=== PATIENT | female | born 1990 | race Caucasian/White ===

== ENCOUNTER 2018-11-21 12:43 | Emergency (ER) | payer MEDICAID, OTHER ==
[2018-11-21 12:48] VITALS: RESP 18
[2018-11-21] MEDS ORDERED: KETOROLAC 60 MG/2 ML VIAL IM STA (13:29)
[2018-11-21] MEDS ORDERED: methylPREDNISolone SOD SUCCI 125 MG/2 ML VIAL IM ONE (13:29)
--- NOTE | 2018-11-21 14:02 | XR ---
EXAMINATION TYPE: XR cervical spine limited DATE OF EXAM: 11/21/2018 TECHNIQUE: Frontal, lateral, and open mouth view of the cervical spine are obtained. HISTORY: Pain numbness in left arm for 2 weeks. COMPARISON: None FINDINGS: The cervical spine is visualized in its entirety from C1 thru the top of T1 level, it is s traightening in alignment without evidence of acute fracture or dislocation. The pre-vertebral soft tissue appears within normal limits. The C1-C2 articulation is within normal limits on the open mout h view. Vertebral body heights and disc space heights are maintained. Overlying soft tissue is unrema rkable. IMPRESSION: As above.
--- NOTE | 2018-11-21 14:47 | ED ---
General Adult HPI - General Chief complaint: Extremity Injury, Upper Stated complaint: LT arm numbness Time Seen by Provider: 11/21/18 12:49 Source: patient, RN notes reviewed, old records reviewed Mode of arrival: ambulatory Limitations: no limitations - History of Present Illness Initial comments: Patient is a 20-year-old female who presents emergency department today for evaluation of neck pain and spasm. She complains of numbness and tingling down her first through third fingers. Patient states that she's been having these symptoms to them symptoms for many weeks. Patient states that just is frustrating continues to persist her pressure and states she has history of neck. Patient states she hasn't taken any Motrin or Tylenol for pain. She complains of tenderness over the trapezius. - Related Data Home Medications Medication Instructions Recorded Confirmed Albuterol Sulfate [Proair Hfa] 2 puff INHALATION RT-Q6H PRN 03/08/16 03/08/16 Cetirizine HCl [Zyrtec] 10 mg PO DAILY 03/08/16 03/08/16 Fluticasone Nasal [place] [Flonase 1 spray EA NOSTRIL DAILY PRN 03/08/16 03/08/16 Nasal [place]] Ketorolac [Toradol] 20 mg PO DAILY PRN 03/08/16 03/08/16 Levothyroxine Sodium [Synthroid] 88 mcg PO DAILY 03/08/16 03/08/16 SUMAtriptan SUCCINATE [Imitrex] 50 mg PO DAILY PRN 03/08/16 03/08/16 Topiramate [Topamax] 25 mg PO DAILY 03/08/16 03/08/16 Previous Rx's Medication Instructions Recorded Cyclobenzaprine [Flexeril] 10 mg PO TID #20 tab 11/21/18 Dexamethasone 0.75 mg PO DAILY #12 tab 11/21/18 Ibuprofen 600 mg PO TID #20 tablet 11/21/18 Allergies Allergy/AdvReac Type Severity Reaction Status Date / Time No Known Allergies Allergy Verified 03/08/16 07:49 Review of Systems ROS Statement: Those systems with pertinent positive or pertinent negative responses have been documented in the HPI. ROS Other: All systems not noted in ROS Statement are negative. Past Medical History Additional Past Medical History / Comment(s): MIGRAINES History of Any Multi-Drug Resistant Organisms: None Reported Past Surgical History: Ear Surgery Past Psychological History: No Psychological Hx Reported Smoking Status: Never smoker Past Alcohol Use History: Occasional Past Drug Use History: None Reported General Exam - General Exam Comments Initial Comments: 30-year-old female. Alert and oriented 3. No significant distress. Limitations: no limitations General appearance: alert, in no apparent distress Head exam: Present: atraumatic, normocephalic, normal inspection Eye exam: Present: normal appearance, PERRL, EOMI. Absent: scleral icterus, conjunctival injection, periorbital swelling ENT exam: Present: normal exam, mucous membranes moist Neck exam: Present: normal inspection, other (Patient has tenderness over the left-sided paraspinal muscles.). Absent: tenderness, meningismus, lymphadenopathy Respiratory exam: Present: normal lung sounds bilaterally. Absent: respiratory distress, wheezes, rales, rhonchi, stridor Cardiovascular Exam: Present: regular rate, normal rhythm, normal heart sounds. Absent: systolic murmur, diastolic murmur, rubs, gallop, clicks GI/Abdominal exam: Present: soft, normal bowel sounds. Absent: distended, tenderness, guarding, rebound, rigid Extremities exam: Present: normal inspection, full ROM, normal capillary refill. Absent: tenderness, pedal edema, joint swelling, calf tenderness Back exam: Present: normal inspection Neurological exam: Present: alert, oriented X3, CN II-XII intact Psychiatric exam: Present: normal affect, normal mood Skin exam: Present: warm, dry, intact, normal color. Absent: rash Course Vital Signs 11/21/18 12:45 Temperature 97.9 F Pulse Rate 76 Respiratory 18 Rate Blood Pressure 139/80 O2 Sat by Pulse 97 Oximetry Medical Decision Making - Medical Decision Making Patient is a 20-year-old female presents emergency room today with neck pain muscle spasms over the first through third fingers. She is him a Refill and sensation. She states that she has full range of motion of her neck and shoulders. She does have some tenderness over the trapezius. Patient was given IM Toradol Solu-Medrol. Patient's neck x-ray shows evidence of straightening of the cervical spine. Patient advised is no fracture. Discussed that she needs to muscle accident temperature medicine for pain. Discussed falling up with service desk specialist. All questions were answered. Disposition Clinical Impression: Cervical paraspinal muscle spasm, Paresthesia Disposition: HOME SELF-CARE Condition: Good Instructions (If sedation given, give patient instructions): Muscle Spasm (ED), Paresthesia (ED) Additional Instructions: Patient has have close follow-up with primary care physician. Return to the emergency department if any alarming signs or symptoms occur. Patient has taken steroids multiple anti-inflammatory medicine as prescribed. Recommended doing heat and ice to the neck for spasms. Prescriptions: Dexamethasone 0.75 mg PO DAILY #12 tab Cyclobenzaprine [Flexeril] 10 mg PO TID #20 tab Ibuprofen 600 mg PO TID #20 tablet Is patient prescribed a controlled substance at d/c from ED?: No Referrals: None,Stated [Primary Care Provider] - 1-2 days Etta Simmons MD [STAFF PHYSICIAN] - 1-2 days Paul Melara MD [STAFF PHYSICIAN] - 1-2 days Time of Disposition: 14:43
[2018-11-21] MEDS ORDERED: CYCLOBENZAPRINE 10MG STARTER 3 TAB BTL PO STA (14:51)
[2018-11-21 15:21] VITALS: BP 123/70; PULSE 75; TEMP 98
== END 2018-11-21 15:20 | disposition home or self-care (01) ==
LOC: EC 12:43
DX: M62.838 Other muscle spasm (principal); R20.2 Paresthesia of skin; Z79.82 Long term (current) use of aspirin; Z79.890 Hormone replacement therapy; Z79.899 Other long term (current) drug therapy; Z86.69 Personal history of other diseases of the nervous system and sense organs
CPT/HCPCS: 99284; 96372; 72040; J2930; J1885

== ENCOUNTER → 2018-12-06 | Outpatient (CLI) | payer MEDICAID ==
--- NOTE | 2018-12-06 08:17 | US ---
EXAMINATION TYPE: US thyroid st tissue head/neck DATE OF EXAM: 12/06/2018 COMPARISON: Thyroid ultrasound of 2012 CLINICAL HISTORY: E04.9 ENLARGED THYROID. No thyroid meds. Patient states thyroid feels enlarged. GLAND SIZE: Right Lobe: 4.9 x 2.0 x 1.4 cm Overall Parenchyma: homogenous Left Lobe: 4.6 x 1.9 x 1.2 cm Overall Parenchyma: homogeneous Isthmus Thickness: 0.2 cm NODULES RIGHT: # of nodules measured on right: 1 1. 0.9 X 0.7 x 0.8 cm echogenic nodule with shadow at the mid lateral pole with irregular margins. This nodule is taller than wide and shows no intranodular vascularity. Prior size: 1.1 x 0.5 x 0.8 LEFT: # of nodules measured on left: 0 ISTHMUS: # of nodules measured in the isthmus: 0 Bilateral neck scanned, no evidence of lymphadenopathy. IMPRESSION: Stable right thyroid nodule dating back to thousand 12, this should be considered benign.
== END | disposition home or self-care (01) ==
LOC: RADUSWWP 07:39
PROVIDERS: ATTEND Family Medicine
DX: E04.1 Nontoxic single thyroid nodule (principal)
CPT/HCPCS: 76536

== ENCOUNTER → 2019-01-21 | Outpatient (CLI) | payer MEDICAID | END | disposition home or self-care (01) | LOC: LABWHC1 10:55 | PROVIDERS: ATTEND Otolaryngology | DX: R53.83 Other fatigue (principal); E04.1 Nontoxic single thyroid nodule | CPT/HCPCS: 36415; 82330; 86376 ==

== ENCOUNTER 2019-01-28 12:53 | Day surgery (SDC) | payer MEDICAID ==
[2019-01-28 13:57] VITALS: TEMP 98.1
[2019-01-28 14:07] VITALS: BP 127/69; PULSE 72; RESP 16
--- NOTE | 2019-01-28 14:18 | US ---
ULTRASOUND GUIDED FNA THYROID BIOPSY: CLINICAL HISTORY: 1 cm right thyroid nodule FINDINGS: The procedure was explained to the patient. The risks, complications, benefits and alternatives were discussed and any questions were answered. Informed consent was obtained. Patient was placed supin e on the ultrasound table and prepped and draped in the usual sterile fashion. Utilizing a 25 gauge needle, five passes were made into the requested 1 cm partially calcified right thyroid nodule. Patient was stable throughout the procedure. Pathology is pending. All elements of maximal barrier technique were utilized. IMPRESSION: 1. Successful ultrasound guided FNA thyroid biopsy.
== END 2019-01-28 14:10 | disposition home or self-care (01) ==
LOC: RADPROMAIN 12:53
PROVIDERS: ATTEND Otolaryngology
DX: E04.1 Nontoxic single thyroid nodule (principal)
CPT/HCPCS: 10005; 88173; 88305

== ENCOUNTER → 2019-06-03 | Outpatient (CLI) | payer MEDICAID | END | disposition home or self-care (01) | LOC: LABWHC1 06:56 | PROVIDERS: ATTEND Internal Medicine | DX: E89.0 Postprocedural hypothyroidism (principal); C73 Malignant neoplasm of thyroid gland | CPT/HCPCS: 36415; 84432; 84439; 84443; 86800 ==

== ENCOUNTER 2019-06-11 01:21 | Emergency (ER) | payer MEDICAID ==
[2019-06-11] MEDS ORDERED: KETOROLAC 30 MG/ML 1 ML VIAL IM STA (01:47)
[2019-06-11] MEDS ORDERED: ACETAMINOPHEN TAB 500 MG TAB PO STA (01:48)
[2019-06-11] MEDS ORDERED: ONDANSETRON ODT 4 MG TAB PO STA (01:48)
--- NOTE | 2019-06-11 01:56 | ED ---
General Adult HPI - General Chief complaint: Fever Stated complaint: Fever Time Seen by Provider: 06/11/19 01:38 Source: patient Mode of arrival: ambulatory Limitations: no limitations - History of Present Illness Initial comments: 28-year-old female patient presents the emergency department today for evaluation of fever, vomiting, and back pain. Patient states symptoms started early this morning. Last episode of vomiting was around noon. States she had about 4 episodes. Patient states that she is also having bilateral low back pain. Denies any abdominal pain. She denies any hematuria, dysuria, urinary frequency, urinary urgency. Patient states that she did have a sore throat and slight cough last week but those symptoms seem to have resolved. She denies any rash. States after count of 202.4F today. States she did take TheraFlu around midnight. Patient is also reporting headache and body aches. Patient does have history of thyroid cancer. Thyroid was removed in April, she reports no palpitations with this procedure. Patient denies any recent shortness breath, chest pain, numbness, tingling, dizziness, weakness, headache, visual changes, or any other complaints. - Related Data Home Medications Medication Instructions Recorded Confirmed Albuterol Sulfate [Proair Hfa] 2 puff INHALATION RT-Q6H PRN 03/08/16 01/21/19 Cetirizine HCl [Zyrtec] 10 mg PO DAILY 01/21/19 01/28/19 Ibuprofen 600 mg PO DAILY PRN 01/21/19 01/21/19 Allergies Allergy/AdvReac Type Severity Reaction Status Date / Time No Known Allergies Allergy Verified 06/11/19 01:30 Review of Systems ROS Statement: Those systems with pertinent positive or pertinent negative responses have been documented in the HPI. ROS Other: All systems not noted in ROS Statement are negative. Past Medical History Past Medical History: Thyroid Disorder Additional Past Medical History / Comment(s): MIGRAINES, thyroid Cancer 02/2019, History of Any Multi-Drug Resistant Organisms: None Reported Past Surgical History: Section, Ear Surgery Additional Past Surgical History / Comment(s): thyroid removal, Past Psychological History: No Psychological Hx Reported Smoking Status: Never smoker Past Alcohol Use History: Occasional Past Drug Use History: None Reported General Exam Limitations: no limitations General appearance: alert, in no apparent distress, other (This is a well- developed, well-nourished adult female patient in no acute distress. Vital signs upon presentation are temperature 99.0F. Pulse 101, respirations 18, blood pressure 155/79, pulse ox 98% on room air.) Eye exam: Present: normal appearance, PERRL, EOMI. Absent: scleral icterus, conjunctival injection, periorbital swelling ENT exam: Present: normal exam, normal oropharynx, mucous membranes moist Respiratory exam: Present: normal lung sounds bilaterally. Absent: respiratory distress, wheezes, rales, rhonchi, stridor Cardiovascular Exam: Present: regular rate, normal rhythm, normal heart sounds. Absent: systolic murmur, diastolic murmur, rubs, gallop, clicks GI/Abdominal exam: Present: soft, normal bowel sounds. Absent: distended, tenderness, guarding, rebound, rigid Neurological exam: Present: alert, oriented X3, CN II-XII intact Psychiatric exam: Present: normal affect, normal mood Skin exam: Present: warm, dry, intact, normal color. Absent: rash Course Vital Signs 06/11/19 06/11/19 01:27 03:49 Temperature 99.0 F 98.5 F Pulse Rate 101 H 64 Respiratory 18 12 Rate Blood Pressure 155/79 102/54 O2 Sat by Pulse 98 98 Oximetry Medical Decision Making - Medical Decision Making 28-year-old female patient presents to the emergency department today for evaluation of headache, fever, vomiting. Physical examination was relatively unremarkable. She is neurologically intact with no focal deficits. Abdomen is soft and nontender. Lungs are clear to auscultation with good air movement. Influenza and urinalysis were negative for any signs of infection. Upon reevaluation patient reports no improvement in symptoms. We did insert IV, given IV fluids, labs are unremarkable. I did discuss findings and results with the patient. She is currently reporting her head pain at a 2. She is having no meningismus. We will discharge with likely viral syndrome. She'll follow-up with her primary care physician for recheck in 1-2 days. Return parameters discussed in detail. She verbalizes understanding and agrees with this plan. - Lab Data Result diagrams: 06/11/19 03:10 06/11/19 03:10 Lab Results 06/11/19 06/11/19 06/11/19 Range/Units 02:07 02:07 02:07 WBC (3.8-10.6) k/uL RBC (3.80-5.40) m/uL Hgb (11.4-16.0) gm/dL Hct (34.0-46.0) % MCV (80.0-100.0) fL MCH (25.0-35.0) pg MCHC (31.0-37.0) g/dL RDW (11.5-15.5) % Plt Count (150-450) k/uL Neutrophils % % Lymphocytes % % Monocytes % % Eosinophils % % Basophils % % Neutrophils # (1.3-7.7) k/uL Lymphocytes # (1.0-4.8) k/uL Monocytes # (0-1.0) k/uL Eosinophils # (0-0.7) k/uL Basophils # (0-0.2) k/uL Sodium (137-145) mmol/L Potassium (3.5-5.1) mmol/L Chloride (98-107) mmol/L Carbon Dioxide (22-30) mmol/L Anion Gap mmol/L BUN (7-17) mg/dL Creatinine (0.52-1.04) mg/dL Est GFR (CKD-EPI)AfAm (>60 ml/min/1.73 sqM) Est GFR (CKD-EPI)NonAf (>60 ml/min/1.73 sqM) Glucose (74-99) mg/dL Plasma Lactic Acid Alex (0.7-2.0) mmol/L Calcium (8.4-10.2) mg/dL Total Bilirubin (0.2-1.3) mg/dL AST (14-36) U/L ALT (4-34) U/L Alkaline Phosphatase (38-126) U/L Total Protein (6.3-8.2) g/dL Albumin (3.5-5.0) g/dL Urine Color Yellow Urine Appearance Clear (Clear) Urine pH 7.0 (5.0-8.0) Ur Specific [place] 1.009 (1.001-1.035) Urine Protein Negative (Negative) Urine Glucose (UA) Negative (Negative) Urine Ketones Negative (Negative) Urine Blood Negative (Negative) Urine Nitrite Negative (Negative) Urine Bilirubin Negative (Negative) Urine Urobilinogen <2.0 (<2.0) mg/dL Ur Leukocyte Esterase Trace H (Negative) Urine RBC 2 (0-5) /hpf Urine WBC 2 (0-5) /hpf Ur Squamous Epith Cells 1 (0-4) /hpf Urine Mucus Rare H (None) /hpf Urine HCG, Qual Not Detected (Not Detectd) Influenza Type A RNA Not Detected (Not Detectd) Influenza Type B (PCR) Not Detected (Not Detectd) 06/11/19 06/11/19 06/11/19 Range/Units 03:10 03:10 03:10 WBC 5.3 (3.8-10.6) k/uL RBC 4.32 (3.80-5.40) m/uL Hgb 13.0 (11.4-16.0) gm/dL Hct 39.7 (34.0-46.0) % MCV 91.8 (80.0-100.0) fL MCH 30.0 (25.0-35.0) pg MCHC 32.7 (31.0-37.0) g/dL RDW 13.7 (11.5-15.5) % Plt Count 249 (150-450) k/uL Neutrophils % 69 % Lymphocytes % 21 % Monocytes % 5 % Eosinophils % 2 % Basophils % 1 % Neutrophils # 3.6 (1.3-7.7) k/uL Lymphocytes # 1.1 (1.0-4.8) k/uL Monocytes # 0.3 (0-1.0) k/uL Eosinophils # 0.1 (0-0.7) k/uL Basophils # 0.1 (0-0.2) k/uL Sodium 137 (137-145) mmol/L Potassium 3.7 (3.5-5.1) mmol/L Chloride 104 (98-107) mmol/L Carbon Dioxide 26 (22-30) mmol/L Anion Gap 7 mmol/L BUN 9 (7-17) mg/dL Creatinine 0.52 (0.52-1.04) mg/dL Est GFR (CKD-EPI)AfAm >90 (>60 ml/min/1.73 sqM) Est GFR (CKD-EPI)NonAf >90 (>60 ml/min/1.73 sqM) Glucose 115 H (74-99) mg/dL Plasma Lactic Acid Alex 1.5 (0.7-2.0) mmol/L Calcium 8.8 (8.4-10.2) mg/dL Total Bilirubin 0.7 (0.2-1.3) mg/dL AST 20 (14-36) U/L ALT 13 (4-34) U/L Alkaline Phosphatase 60 (38-126) U/L Total Protein 7.0 (6.3-8.2) g/dL Albumin 4.0 (3.5-5.0) g/dL Urine Color Urine Appearance (Clear) Urine pH (5.0-8.0) Ur Specific [place] (1.001-1.035) Urine Protein (Negative) Urine Glucose (UA) (Negative) Urine Ketones (Negative) Urine Blood (Negative) Urine Nitrite (Negative) Urine Bilirubin (Negative) Urine Urobilinogen (<2.0) mg/dL Ur Leukocyte Esterase (Negative) Urine RBC (0-5) /hpf Urine WBC (0-5) /hpf Ur Squamous Epith Cells (0-4) /hpf Urine Mucus (None) /hpf Urine HCG, Qual (Not Detectd) Influenza Type A RNA (Not Detectd) Influenza Type B (PCR) (Not Detectd) Disposition Clinical Impression: Viral syndrome, Fever, Vomiting Disposition: HOME SELF-CARE Condition: Good Instructions (If sedation given, give patient instructions): Fever in Adults (ED), Acute Nausea and Vomiting (ED), Viral Syndrome (ED) Additional Instructions: Increase fluids. Continue Tylenol and Motrin for pain and fever control. Follow-up with your primary care physician for recheck in 1-2 days. Return to the emergency department immediately for any new, worsening, or concerning symptoms. Is patient prescribed a controlled substance at d/c from ED?: No Referrals: Rae Mercedes MD [Primary Care Provider] - 1-2 days Time of Disposition: 03:59
[2019-06-11 02:23] LABS: Appearance,Urine Clear (Clear); Bilirubin,Urine Negative (Negative); Blood,Urine Negative (Negative); Color,Urine Yellow; Glucose,Urine (UA) Negative (Negative); Ketones,Urine Negative (Negative); Leukocyte Esterase,Urine Trace (Negative); Mucus,Urine Rare /hpf; Nitrite,Urine Negative (Negative); Protein,Urine Negative (Negative); RBC,Urine 2 /hpf (0-5); Specific Gravity,Urine 1.009 (1.001-1.035); Squamous Epithelial Cell,Urine 1 /hpf (0-4); Urobilinogen,Urine <2.0 mg/dL (<2.0); WBC,Urine 2 /hpf (0-5)
[2019-06-11] MEDS ORDERED: SODIUM CHLORIDE 0.9% 1,000 ML IV STA (02:45)
[2019-06-11] MEDS ORDERED: METOCLOPRAMIDE 5 MG/ML 2 ML VIAL IVP STA (02:45)
[2019-06-11] MEDS ORDERED: diphenhydrAMINE 50 MG/ML 1 ML VIAL IVP STA (02:45)
[2019-06-11 03:34] LABS: Basophils # (A) 0.1 k/uL (0-0.2); Basophils % (A) 1 %; Eosinophils # (A) 0.1 k/uL (0-0.7); Eosinophils % (A) 2 %; HCT 39.7 % (34.0-46.0); Lymphocytes # (A) 1.1 k/uL (1.0-4.8); Lymphocytes % (A) 21 %; MCHC 32.7 g/dL (31.0-37.0); MCV 91.8 fL (80.0-100.0); Mean Platelet Volume 7.1; Monocytes # (A) 0.3 k/uL (0-1.0); Monocytes % (A) 5 %; Neutrophils # (A) 3.6 k/uL (1.3-7.7); Neutrophils % (A) 69 %; Platelet Count 249 k/uL (150-450); RBC 4.32 m/uL (3.80-5.40); RDW 13.7 % (11.5-15.5); WBC 5.3 k/uL (3.8-10.6)
[2019-06-11 03:36] LABS: ALT 13 U/L (4-34); AST 20 U/L (14-36); African American GFR (CKD) >90 (>60 ml/min/1.73 sqM); Alkaline Phosphatase 60 U/L (38-126); Anion Gap 7 mmol/L; Blood Urea Nitrogen 9 mg/dL (7-17); Calcium 8.8 mg/dL (8.4-10.2); Carbon Dioxide 26 mmol/L (22-30); Chloride 104 mmol/L (98-107); Glucose 115 mg/dL (74-99); Non-African American GFR(CKD) >90 (>60 ml/min/1.73 sqM); Potassium 3.7 mmol/L (3.5-5.1); Sodium 137 mmol/L (137-145); Total Bilirubin 0.7 mg/dL (0.2-1.3)
[2019-06-11 04:17] VITALS: BP 115/48; PULSE 74; RESP 18; TEMP 98.3
== END 2019-06-11 04:25 | disposition home or self-care (01) ==
LOC: EC 01:21
DX: B34.9 Viral infection, unspecified (principal); R11.10 Vomiting, unspecified; Z85.850 Personal history of malignant neoplasm of thyroid; Z90.89 Acquired absence of other organs
CPT/HCPCS: 36415; 80053; 83605; 85025; 81001; 81025; 87040; 87502; 99283; 96372; 96374; 96375; J1200; J2765; J1885

== ENCOUNTER → 2019-08-15 | Outpatient (CLI) | payer MEDICAID ==
[2019-08-15 15:30] LABS: T4, Free (Free Thyroxine) 1.1 ng/dL (0.80-1.80)
== END | disposition home or self-care (01) ==
LOC: LABWHC1 08:21
PROVIDERS: ATTEND Internal Medicine
DX: E89.0 Postprocedural hypothyroidism (principal)
CPT/HCPCS: 36415; 84439; 84443

== ENCOUNTER → 2019-11-21 | Outpatient (CLI) | payer MEDICAID ==
[2019-11-21 16:01] LABS: T4, Free (Free Thyroxine) 1.4 ng/dL (0.80-1.80)
== END | disposition home or self-care (01) ==
LOC: LABWHC1 09:45
PROVIDERS: ATTEND Internal Medicine
DX: E89.0 Postprocedural hypothyroidism (principal)
CPT/HCPCS: 36415; 84439; 84443

== ENCOUNTER → 2020-03-17 | Outpatient (CLI) | payer MEDICAID ==
--- NOTE | 2020-03-18 07:27 | US ---
EXAMINATION TYPE: US thyroid st tissue head/neck DATE OF EXAM: 03/17/2020 COMPARISON: Radius exam 12/06/2018 CLINICAL HISTORY: C73 MALIGNANT NEOPLASM OF THYROID GLAND. Malignant neoplasm of thyroid gland. Hx ri ght thyroid biopsy, right thyroidectomy 04/14/2019. Patient takes thyroid medication. GLAND SIZE: Right Lobe: Right thyroidectomy 04/14/2019. No residual tissue seen at this time by ultrasound. Left Lobe: 5.7 x 1.9 x 1.4 cm Overall Parenchyma: heterogeneous Isthmus Thickness: 0.32 cm NODULES Right thyroidectomy. LEFT: # of nodules measured on left: None visualized. Left thyroid lobe appears very heterogeneou s. ISTHMUS: # of nodules measured in the isthmus: 0 Bilateral neck scanned. Hypoechoic area with hyperechoic center seen left neck measurin.7 x 0.6 x 0.4 cm consistent with benign-appearing node IMPRESSION: Postop changes
== END | disposition home or self-care (01) ==
LOC: RADUSWWP 16:59
PROVIDERS: ATTEND Internal Medicine
DX: C73 Malignant neoplasm of thyroid gland (principal); Z98.890 Other specified postprocedural states
CPT/HCPCS: 76536

== ENCOUNTER → 2020-03-24 | Outpatient (CLI) | payer MEDICAID | END | disposition home or self-care (01) | LOC: LABWHC1 14:40 | PROVIDERS: ATTEND Internal Medicine | DX: C73 Malignant neoplasm of thyroid gland (principal); E89.0 Postprocedural hypothyroidism | CPT/HCPCS: 36415; 84432; 84439; 84443; 86800 ==

== ENCOUNTER → 2021-03-30 | Outpatient (CLI) | payer MEDICAID ==
[2021-03-30 15:28] LABS: T4, Free (Free Thyroxine) 1.18 ng/dL (0.800-1.800)
== END | disposition home or self-care (01) ==
LOC: LABWHC1 07:07
PROVIDERS: ATTEND Internal Medicine
DX: E89.0 Postprocedural hypothyroidism (principal)
CPT/HCPCS: 36415; 84439; 84443

== ENCOUNTER → 2021-04-18 | Outpatient (CLI) | payer MEDICAID ==
[2021-04-18 14:42] LABS: T4, Free (Free Thyroxine) 1.23 ng/dL (0.78-2.19)
--- NOTE | 2021-04-18 14:58 | US ---
EXAMINATION TYPE: US thyroid st tissue head/neck DATE OF EXAM: 04/18/2021 COMPARISON: US CLINICAL HISTORY: C73 malignant neoplasm of thyroid gland. Right thyroidectomy 2009 GLAND SIZE: Right Lobe: oval hyperechoic elongated tissue imaged between trachea and lateral carotid artery = 2.0 x 0.5 x 0.8cm Left Lobe: 5.4 x 2.0 x 1.4 cm Overall Parenchyma: heterogeneous Isthmus Thickness: 0.2 cm NODULES RIGHT: # of nodules measured on right: 0 LEFT: # of nodules measured on left: 0 ISTHMUS: # of nodules measured in the isthmus: 0 Bilateral neck scanned: lymph node seen superior to left thyroid = 1.6 x 1.7 x 0.6cm. IMPRESSION: 1. No suspicious thyroid nodules. 2. Some minimal soft tissue density may be present between the trachea and lateral carotid artery. 3. No suspicious nodules evident 2016 ACR TI-RADS LEVEL: *Highest TI-RADS level nodule reported
[2021-04-19 06:27] LABS: Estradiol 49.4 pg/mL; Follicle Stimulating Hormone 6.6 mIU/mL; Testosterone 38.9 ng/mL (9.01-47.94)
[2021-04-19 14:44] LABS: Luteinizing Hormone 14.5 mIU/mL
== END | disposition home or self-care (01) ==
LOC: RADUSWWP 13:37
PROVIDERS: ATTEND Internal Medicine
DX: N92.6 Irregular menstruation, unspecified (principal); E89.0 Postprocedural hypothyroidism; Z85.850 Personal history of malignant neoplasm of thyroid
CPT/HCPCS: 36415; 76536; 82627; 82670; 83001; 83002; 84402; 84403; 84432; 84439; 84443; 86800

== ENCOUNTER 2021-05-27 04:38 | Emergency (ER) | payer MEDICAID ==
[2021-05-27] MEDS ORDERED: KETOROLAC 15 MG/ML 1 ML VIAL IVP STA (05:07)
[2021-05-27] MEDS ORDERED: ACETAMINOPHEN TAB 500 MG TAB PO STA (05:07)
[2021-05-27] MEDS ORDERED: diphenhydrAMINE 50 MG/ML 1 ML VIAL IVP STA (05:07)
[2021-05-27] MEDS ORDERED: SODIUM CHLORIDE 0.9% 1,000 ML IV STA (05:07)
[2021-05-27] MEDS ORDERED: SODIUM CHLORIDE 0.9% 1,000 ML IV SCH (05:15)
--- NOTE | 2021-05-27 05:26 | ED ---
Fever HPI - General Source: patient Mode of arrival: ambulatory Limitations: no limitations <Jovanny Patten - Last Filed: 05/27/21 05:26> <Art Herndon - Last Filed: 05/27/21 08:20> - General Chief Complaint: Skin/Abscess/Foreign Body Stated Complaint: Fever, possible infection Time Seen by Provider: 05/27/21 05:09 - History of Present Illness Initial Comments: 30-year-old female with a past medical history of thyroid cancer presents to the emergency room for a chief complaint of right armpit pain. Patient states her right armpit has been painful for the past couple days. States she feels a lump in it. Patient also reports that she has had fevers and a headache on and off. Denies cough or congestion. Denies abdominal pain.Patient has no other complaints at this time including shortness of breath, chest pain, abdominal pain, nausea or vomiting, headache, or visual changes. (Art Herndon) - Related Data Home Medications Medication Instructions Recorded Confirmed Albuterol Sulfate [Proair Hfa] 2 puff INHALATION RT-Q6H PRN 03/08/16 01/21/19 Cetirizine HCl [Zyrtec] 10 mg PO DAILY 01/21/19 01/28/19 Ibuprofen 600 mg PO DAILY PRN 01/21/19 01/21/19 Levothyroxine Sodium 100 mcg PO DAILY 08/24/20 08/24/20 Previous Rx's Medication Instructions Recorded Cyclobenzaprine [Flexeril] 10 mg PO TID #15 tab 08/24/20 Ibuprofen [Motrin] 600 mg PO Q8HR PRN #30 tab 08/24/20 Tamsulosin HCl [Flomax] 0.4 mg PO DAILY #7 cap 08/24/20 Allergies Allergy/AdvReac Type Severity Reaction Status Date / Time No Known Allergies Allergy Verified 05/27/21 04:47 Review of Systems ROS Other: All systems not noted in ROS Statement are negative. <Jovanny Patten - Last Filed: 05/27/21 05:26> ROS Other: All systems not noted in ROS Statement are negative. <Art Herndon - Last Filed: 05/27/21 08:20> ROS Statement: Those systems with pertinent positive or pertinent negative responses have been documented in the HPI. Past Medical History Past Medical History: Cancer, Thyroid Disorder Additional Past Medical History / Comment(s): thyroid cancer History of Any Multi-Drug Resistant Organisms: None Reported Past Surgical History: Section, Ear Surgery Additional Past Surgical History / Comment(s): thyroidectomy Past Psychological History: No Psychological Hx Reported Smoking Status: Never smoker Past Alcohol Use History: None Reported, Occasional Past Drug Use History: None Reported <Jovanny Patten - Last Filed: 05/27/21 05:26> General Exam Limitations: no limitations <Jovanny Patten - Last Filed: 05/27/21 05:26> General appearance: alert, in no apparent distress Head exam: Present: atraumatic Eye exam: Present: normal appearance, PERRL, EOMI. Absent: scleral icterus, conjunctival injection ENT exam: Present: normal exam, mucous membranes moist Neck exam: Present: normal inspection, full ROM. Absent: tenderness Respiratory exam: Present: normal lung sounds bilaterally. Absent: respiratory distress, wheezes Cardiovascular Exam: Present: regular rate, normal rhythm, normal heart sounds GI/Abdominal exam: Present: soft, normal bowel sounds. Absent: distended, tenderness Extremities exam: Present: other (small nodule right axilla likely lymphadenopathy) <Art Herndon P - Last Filed: 05/27/21 08:20> Course Vital Signs 05/27/21 04:44 Temperature 102.1 F H Pulse Rate 115 H Respiratory 20 Rate Blood Pressure 132/74 O2 Sat by Pulse 99 Oximetry Medical Decision Making - Lab Data Result diagrams: 05/27/21 05:13 05/27/21 05:13 <Art Herndon P - Last Filed: 05/27/21 08:20> - Medical Decision Making Vitals are stable. Patient does have a fever. CBC shows mild leukocytosis. CMP unremarkable. Back he has a 2.6 likely secondary to dehydration. Urinalysis does not show any evidence of infection. COVID-19 is negative. Chest x-ray shows no acute process. I am of the right axilla did not reveal any evidence of abscess. Therefore ultrasound was ordered. This showed no worrisome fluid collection or abscess. There is some lymphadenopathy noted. Return ultrasound is advised. At this time patient likely has viral syndrome. Patient can be discharged home to follow up with primary care. If she has any worsening symptoms she is aware she needs to return to the emergency room. (Art Herndon) - Lab Data Lab Results 05/27/21 05/27/21 05/27/21 Range/Units 05:13 05:13 05:13 WBC 11.5 H (3.8-10.6) k/uL RBC 4.33 (3.80-5.40) m/uL Hgb 13.0 (11.4-16.0) gm/dL Hct 40.1 (34.0-46.0) % MCV 92.6 (80.0-100.0) fL MCH 30.0 (25.0-35.0) pg MCHC 32.3 (31.0-37.0) g/dL RDW 14.0 (11.5-15.5) % Plt Count 269 (150-450) k/uL MPV 7.3 Neutrophils % 72 % Lymphocytes % 21 % Monocytes % 3 % Eosinophils % 2 % Basophils % 1 % Neutrophils # 8.2 H (1.3-7.7) k/uL Lymphocytes # 2.4 (1.0-4.8) k/uL Monocytes # 0.3 (0-1.0) k/uL Eosinophils # 0.2 (0-0.7) k/uL Basophils # 0.1 (0-0.2) k/uL PT 10.5 (9.0-12.0) sec INR 1.0 (<1.2) APTT 23.1 (22.0-30.0) sec Sodium 136 L (137-145) mmol/L Potassium 4.2 (3.5-5.1) mmol/L Chloride 102 (98-107) mmol/L Carbon Dioxide 24 (22-30) mmol/L Anion Gap 10 mmol/L BUN 7 (7-17) mg/dL Creatinine 0.60 (0.52-1.04) mg/dL Est GFR (CKD-EPI)AfAm >90 (>60 ml/min/1.73 sqM) Est GFR (CKD-EPI)NonAf >90 (>60 ml/min/1.73 sqM) Glucose 148 H (74-99) mg/dL Lactic Ac Sepsis Rflx Plasma Lactic Acid Alex (0.7-2.0) mmol/L Calcium 9.3 (8.4-10.2) mg/dL Magnesium 1.9 (1.6-2.3) mg/dL Total Bilirubin 0.8 (0.2-1.3) mg/dL AST 21 (14-36) U/L ALT 21 (4-34) U/L Alkaline Phosphatase 74 (38-126) U/L Lactate Dehydrogenase 520 (313-618) U/L C-Reactive Protein 2.4 H (<1.0) mg/dL Total Protein 7.8 (6.3-8.2) g/dL Albumin 4.3 (3.5-5.0) g/dL Urine Color Urine Appearance (Clear) Urine pH (5.0-8.0) Ur Specific [place] (1.001-1.035) Urine Protein (Negative) Urine Glucose (UA) (Negative) Urine Ketones (Negative) Urine Blood (Negative) Urine Nitrite (Negative) Urine Bilirubin (Negative) Urine Urobilinogen (<2.0) mg/dL Ur Leukocyte Esterase (Negative) Urine RBC (0-5) /hpf Urine WBC (0-5) /hpf Ur Squamous Epith Cells (0-4) /hpf Urine Mucus (None) /hpf Urine HCG, Qual (Not Detectd) Coronavirus (PCR) (Not Detectd) 05/27/21 05/27/21 05/27/21 Range/Units 05:13 06:15 06:33 WBC (3.8-10.6) k/uL RBC (3.80-5.40) m/uL Hgb (11.4-16.0) gm/dL Hct (34.0-46.0) % MCV (80.0-100.0) fL MCH (25.0-35.0) pg MCHC (31.0-37.0) g/dL RDW (11.5-15.5) % Plt Count (150-450) k/uL MPV Neutrophils % % Lymphocytes % % Monocytes % % Eosinophils % % Basophils % % Neutrophils # (1.3-7.7) k/uL Lymphocytes # (1.0-4.8) k/uL Monocytes # (0-1.0) k/uL Eosinophils # (0-0.7) k/uL Basophils # (0-0.2) k/uL PT (9.0-12.0) sec INR (<1.2) APTT (22.0-30.0) sec Sodium (137-145) mmol/L Potassium (3.5-5.1) mmol/L Chloride (98-107) mmol/L Carbon Dioxide (22-30) mmol/L Anion Gap mmol/L BUN (7-17) mg/dL Creatinine (0.52-1.04) mg/dL Est GFR (CKD-EPI)AfAm (>60 ml/min/1.73 sqM) Est GFR (CKD-EPI)NonAf (>60 ml/min/1.73 sqM) Glucose (74-99) mg/dL Lactic Ac Sepsis Rflx Y Plasma Lactic Acid Alex 2.6 H* (0.7-2.0) mmol/L Calcium (8.4-10.2) mg/dL Magnesium (1.6-2.3) mg/dL Total Bilirubin (0.2-1.3) mg/dL AST (14-36) U/L ALT (4-34) U/L Alkaline Phosphatase (38-126) U/L Lactate Dehydrogenase (313-618) U/L C-Reactive Protein (<1.0) mg/dL Total Protein (6.3-8.2) g/dL Albumin (3.5-5.0) g/dL Urine Color Urine Appearance (Clear) Urine pH (5.0-8.0) Ur Specific [place] (1.001-1.035) Urine Protein (Negative) Urine Glucose (UA) (Negative) Urine Ketones (Negative) Urine Blood (Negative) Urine Nitrite (Negative) Urine Bilirubin (Negative) Urine Urobilinogen (<2.0) mg/dL Ur Leukocyte Esterase (Negative) Urine RBC (0-5) /hpf Urine WBC (0-5) /hpf Ur Squamous Epith Cells (0-4) /hpf Urine Mucus (None) /hpf Urine HCG, Qual (Not Detectd) Coronavirus (PCR) Not Detected (Not Detectd) 05/27/21 05/27/21 Range/Units 07:03 07:03 WBC (3.8-10.6) k/uL RBC (3.80-5.40) m/uL Hgb (11.4-16.0) gm/dL Hct (34.0-46.0) % MCV (80.0-100.0) fL MCH (25.0-35.0) pg MCHC (31.0-37.0) g/dL RDW (11.5-15.5) % Plt Count (150-450) k/uL MPV Neutrophils % % Lymphocytes % % Monocytes % % Eosinophils % % Basophils % % Neutrophils # (1.3-7.7) k/uL Lymphocytes # (1.0-4.8) k/uL Monocytes # (0-1.0) k/uL Eosinophils # (0-0.7) k/uL Basophils # (0-0.2) k/uL PT (9.0-12.0) sec INR (<1.2) APTT (22.0-30.0) sec Sodium (137-145) mmol/L Potassium (3.5-5.1) mmol/L Chloride (98-107) mmol/L Carbon Dioxide (22-30) mmol/L Anion Gap mmol/L BUN (7-17) mg/dL Creatinine (0.52-1.04) mg/dL Est GFR (CKD-EPI)AfAm (>60 ml/min/1.73 sqM) Est GFR (CKD-EPI)NonAf (>60 ml/min/1.73 sqM) Glucose (74-99) mg/dL Lactic Ac Sepsis Rflx Plasma Lactic Acid Alex (0.7-2.0) mmol/L Calcium (8.4-10.2) mg/dL Magnesium (1.6-2.3) mg/dL Total Bilirubin (0.2-1.3) mg/dL AST (14-36) U/L ALT (4-34) U/L Alkaline Phosphatase (38-126) U/L Lactate Dehydrogenase (313-618) U/L C-Reactive Protein (<1.0) mg/dL Total Protein (6.3-8.2) g/dL Albumin (3.5-5.0) g/dL Urine Color Light Yellow Urine Appearance Clear (Clear) Urine pH 5.0 (5.0-8.0) Ur Specific [place] 1.007 (1.001-1.035) Urine Protein Negative (Negative) Urine Glucose (UA) Negative (Negative) Urine Ketones Negative (Negative) Urine Blood Negative (Negative) Urine Nitrite Negative (Negative) Urine Bilirubin Negative (Negative) Urine Urobilinogen <2.0 (<2.0) mg/dL Ur Leukocyte Esterase Trace H (Negative) Urine RBC 1 (0-5) /hpf Urine WBC 1 (0-5) /hpf Ur Squamous Epith Cells 2 (0-4) /hpf Urine Mucus Rare H (None) /hpf Urine HCG, Qual Not Detected (Not Detectd) Coronavirus (PCR) (Not Detectd) Disposition <Jovanny Patten - Last Filed: 05/27/21 05:26> Is patient prescribed a controlled substance at d/c from ED?: No Time of Disposition: 08:20 <Art Herndon - Last Filed: 05/27/21 08:20> Clinical Impression: Fever, Lymphadenopathy Disposition: HOME SELF-CARE Condition: Good Instructions (If sedation given, give patient instructions): Fever in Adults (ED) Additional Instructions: Please take Motrin and Tylenol for fever. Drink plenty of fluids. If you have any worsening symptoms return to the emergency room. Referrals: Rae Mercedes MD [Primary Care Provider] - 1-2 days
[2021-05-27 05:40] LABS: Basophils # (A) 0.1 k/uL (0-0.2); Basophils % (A) 1 %; Eosinophils # (A) 0.2 k/uL (0-0.7); Eosinophils % (A) 2 %; HCT 40.1 % (34.0-46.0); Lymphocytes # (A) 2.4 k/uL (1.0-4.8); Lymphocytes % (A) 21 %; MCHC 32.3 g/dL (31.0-37.0); MCV 92.6 fL (80.0-100.0); Mean Platelet Volume 7.3; Monocytes # (A) 0.3 k/uL (0-1.0); Monocytes % (A) 3 %; Neutrophils # (A) 8.2 k/uL (1.3-7.7); Neutrophils % (A) 72 %; Platelet Count 269 k/uL (150-450); RBC 4.33 m/uL (3.80-5.40); WBC 11.5 k/uL (3.8-10.6)
[2021-05-27 05:53] LABS: ALT 21 U/L (4-34); AST 21 U/L (14-36); African American GFR (CKD) >90 (>60 ml/min/1.73 sqM); Albumin 4.3 g/dL (3.5-5.0); Alkaline Phosphatase 74 U/L (38-126); Anion Gap 10 mmol/L; Blood Urea Nitrogen 7 mg/dL (7-17); C Reactive Protein 2.4 mg/dL (<1.0); Calcium 9.3 mg/dL (8.4-10.2); Carbon Dioxide 24 mmol/L (22-30); Chloride 102 mmol/L (98-107); Glucose 148 mg/dL (74-99); LDH 520 U/L (313-618); Magnesium 1.9 mg/dL (1.6-2.3); Non-African American GFR(CKD) >90 (>60 ml/min/1.73 sqM); Potassium 4.2 mmol/L (3.5-5.1); Sodium 136 mmol/L (137-145); Total Bilirubin 0.8 mg/dL (0.2-1.3); Total Protein 7.8 g/dL (6.3-8.2)
[2021-05-27 06:07] LABS: Partial Thromboplastin Time 23.1 sec (22.0-30.0); Prothrombin Time 10.5 sec (9.0-12.0)
--- NOTE | 2021-05-27 06:13 | XR ---
EXAMINATION TYPE: XR chest 1V portable DATE OF EXAM: 05/27/2021 COMPARISON: Chest x-ray April 24, 2012 HISTORY: Fever and chest pain. TECHNIQUE: Single AP portable frontal upright view of the chest is obtained. FINDINGS: There is no suspicious new focal air space opacity, pleural effusion, or pneumothorax seen . The cardiac silhouette size remains within normal limits. The osseous structures are intact. IMPRESSION: No acute process.
[2021-05-27 07:22] LABS: Appearance,Urine Clear (Clear); Bilirubin,Urine Negative (Negative); Blood,Urine Negative (Negative); Color,Urine Light Yellow; Glucose,Urine (UA) Negative (Negative); Ketones,Urine Negative (Negative); Leukocyte Esterase,Urine Trace (Negative); Mucus,Urine Rare /hpf; Nitrite,Urine Negative (Negative); Protein,Urine Negative (Negative); RBC,Urine 1 /hpf (0-5); Specific Gravity,Urine 1.007 (1.001-1.035); Squamous Epithelial Cell,Urine 2 /hpf (0-4); Urobilinogen,Urine <2.0 mg/dL (<2.0); WBC,Urine 1 /hpf (0-5)
--- NOTE | 2021-05-27 07:42 | US ---
EXAMINATION TYPE: US axilla RT DATE OF EXAM: 05/27/2021 COMPARISON: NONE CLINICAL HISTORY: abscess vs lymph node. Right axilla palpable/painful lump x couple weeks Right axilla: 2 lymph nodes seen at patient's area of concern measuring 3.7 x 1.6 x 2.2cm and 2.4 x 1 .4 x 2.3cm Abnormal lymph nodes in the right axilla enlarge in size with eccentric cortical thickening IMPRESSION: No worrisome focal fluid collection or abscess. Abnormal axillary adenopathy. Finding co uld be reactive inflammatory or infectious change. Correlate clinically. Advise short-term ultrasound follow-up in 4-6 weeks time to reassess .
[2021-05-27 08:33] VITALS: BP 108/59; PULSE 77; RESP 14; TEMP 97.7
== END 2021-05-27 08:40 | disposition home or self-care (01) ==
LOC: EC 04:38
DX: R59.0 Localized enlarged lymph nodes (principal); R50.9 Fever, unspecified; E07.9 Disorder of thyroid, unspecified; Z20.822 Contact with and (suspected) exposure to COVID-19
CPT/HCPCS: 99284; 96374; 96375; 96361; 36415; 80053; 83605; 83615; 83735; 85025; 85610; 85730; 86140; 81001; 81025; 87635; 71045; 76882; J1200; J1885

== ENCOUNTER → 2021-06-06 | Outpatient (CLI) | payer MEDICAID ==
--- NOTE | 2021-06-06 22:04 | US ---
EXAMINATION TYPE: US transvaginal DATE OF EXAM: 06/06/2021 COMPARISON: CT abdomen and pelvis August 24, 2020 CLINICAL HISTORY: N92.6 IRREGULAR PERIODS. irregular menses for 4 years. prior . TECHNIQUE: Transvaginal (TV) Date of LMP: 2 months ago EXAM MEASUREMENTS: Uterus: 6.8 x 3.7 x 5.5 cm Endometrial Stripe: 0.7 cm Right Ovary: 4.1 x 2.0 x 2.8 cm Left Ovary: 3.8 x 1.9 x 2.5 cm 1. Uterus: Retroverted wnl 2. Endometrium: appears wnl 3. Right Ovary: multiple follicles 4. Left Ovary: multiple follicles 5. Bilateral Adnexa: prominent vessels left adnexa 6. Posterior cul-de-sac: wnl Heterogeneous retroverted uterus. Endometrial stripe is somewhat thinned for secretory phase of menst rual cycle. No free fluid. Ovaries are symmetric and within normal limits in size with several peripheral follicles identified b ilaterally. No suspicious extraovarian adnexal masses. IMPRESSION: Somewhat thinned endometrium for patient's last known menstrual period
== END | disposition home or self-care (01) ==
LOC: RADUSWWP 16:14
PROVIDERS: ATTEND Internal Medicine
DX: N85.8 Other specified noninflammatory disorders of uterus (principal); N92.6 Irregular menstruation, unspecified
CPT/HCPCS: 76830

== ENCOUNTER → 2021-06-27 | Outpatient (CLI) | payer MEDICAID ==
--- NOTE | 2021-06-27 09:30 | US ---
EXAMINATION TYPE: US axilla RT DATE OF EXAM: 06/27/2021 COMPARISON: NONE CLINICAL HISTORY: R59.9. right axilla lymph node follow up Right axilla: 2 lymph nodes visualized as on prior exam = 2.7 x 1.0 x 1.7cm and 2.4 x 1.3 x 2.0cm. Prior measurements of 3.7 x 1.6 x 2.2 and 2.4 x 1.4 x 2.3 cm. IMPRESSION: 1. Thickened cortex right axillary lymph nodes. Exam however appears improved from comparison. Contin ued short-term follow-up is recommended in one month.
== END | disposition home or self-care (01) ==
LOC: RADUSWWP 07:47
PROVIDERS: ATTEND Family Medicine
DX: R59.9 Enlarged lymph nodes, unspecified (principal)

== ENCOUNTER → 2021-07-28 | Outpatient (CLI) | payer MEDICAID ==
--- NOTE | 2021-07-28 13:03 | US ---
EXAMINATION TYPE: US axilla RT DATE OF EXAM: 07/28/2021 COMPARISON: NONE CLINICAL HISTORY: R59.9 Enlarged lymph node. following 2 nodes that were scanned 2 times previously, patient did have tenderness of these nodes #1 Lymph node = 2.5 x 1.6 x 1.2cm, cortex = 0.4cm. Previous measurement 2.7 x 1.7 x 1.0 cm. #2 Lymph node = 2.4 x 1.3 x 1.3cm, cortex = 0.6cm. Previous measurement 2.4 x 2.3 x 1.4 cm. IMPRESSION: 1. Continued improvement of lymph node size from recent comparison. Cortex remains thick. Continued m onitoring is recommended.
== END | disposition home or self-care (01) ==
LOC: RADUSWWP 08:18
PROVIDERS: ATTEND Family Medicine
DX: R59.9 Enlarged lymph nodes, unspecified (principal)
CPT/HCPCS: 84702

== ENCOUNTER 2021-07-29 13:53 | Emergency (ER) | payer MEDICAID ==
[2021-07-29 13:56] VITALS: RESP 18; TEMP 98.8
--- NOTE | 2021-07-29 14:58 | ED ---
Abdominal Pain HPI - General Source: patient, RN notes reviewed, old records reviewed Mode of arrival: ambulatory Limitations: no limitations <Shayy Rodriguez - Last Filed: 07/29/21 15:26> <Sonja Alford - Last Filed: 07/29/21 17:07> - General Chief Complaint: Abdominal Pain Stated Complaint: Abd Pain/Preg Time Seen by Provider: 07/29/21 14:24 - History of Present Illness Initial Comments: 31-year-old female presents emergency Department after complaints of lower abdominal discomfort today. Patient reports a history of PCOS and last menstrual period was in mid April. Patient reports that she went to [facility] and did have 2 positive urine test this week. She had a serum hCG performed by her primary care doctor yesterday but she does not know results. She reports that she is planning to follow with a new [employer], Dr. Snyder next week but has not been seen by her. Patient does not know how far along she could be with history of abnormal periods. Patient states that she's had 3 previous miscarriages. She denies vaginal bleeding or discharge. PMH thryoid cancer removed by surgery. (Shayy Rodriguez) This patient was signed out to me by Shayy. Patient not complaining of any symptoms at this time. She states she did have a little bit of abdominal discomfort earlier today, however is not expressing anything prior to being discharged. Patient denies any vaginal bleeding, cramping or abdominal pain. (Sonja Alford) - Related Data Home Medications Medication Instructions Recorded Confirmed Levothyroxine Sodium [Synthroid] 112 mcg PO DAILY 07/29/21 07/29/21 Cck-Gapl-Hyljj Acid 1 cap PO DAILY 07/29/21 07/29/21 [-U Capsule (formulary)] metFORMIN HCL ER [Glucophage XR] 500 mg PO BID 07/29/21 07/29/21 Allergies Allergy/AdvReac Type Severity Reaction Status Date / Time No Known Allergies Allergy Verified 07/29/21 16:11 Review of Systems ROS Other: All systems not noted in ROS Statement are negative. <Shayy Rodriguez - Last Filed: 07/29/21 15:26> ROS Other: All systems not noted in ROS Statement are negative. <Sonja Alford - Last Filed: 07/29/21 17:07> ROS Statement: Those systems with pertinent positive or pertinent negative responses have been documented in the HPI. Past Medical History Past Medical History: Cancer, Thyroid Disorder Additional Past Medical History / Comment(s): thyroid cancer History of Any Multi-Drug Resistant Organisms: None Reported Past Surgical History: Section, Ear Surgery Additional Past Surgical History / Comment(s): thyroidectomy Past Psychological History: No Psychological Hx Reported Smoking Status: Never smoker Past Alcohol Use History: None Reported, Occasional Past Drug Use History: None Reported <Shayy Rodriguez - Last Filed: 07/29/21 15:26> General Exam Limitations: no limitations General appearance: alert, in no apparent distress Head exam: Present: atraumatic, normocephalic, normal inspection Eye exam: Present: normal appearance, PERRL, EOMI. Absent: scleral icterus, conjunctival injection, periorbital swelling ENT exam: Present: normal exam, mucous membranes moist Neck exam: Present: normal inspection. Absent: tenderness, meningismus, lymphadenopathy Respiratory exam: Present: normal lung sounds bilaterally Cardiovascular Exam: Present: regular rate, normal rhythm, normal heart sounds. Absent: systolic murmur, diastolic murmur, rubs, gallop, clicks GI/Abdominal exam: Present: soft, tenderness (minimal suprapubic tenderness. ), normal bowel sounds. Absent: distended, guarding, rebound, rigid Extremities exam: Present: normal inspection, full ROM, normal capillary refill. Absent: tenderness, pedal edema, joint swelling, calf tenderness Back exam: Present: normal inspection Neurological exam: Present: alert, oriented X3, CN II-XII intact Psychiatric exam: Present: normal affect, normal mood Skin exam: Present: warm, dry, intact, normal color. Absent: rash <Shayy Rodriguez - Last Filed: 07/29/21 15:26> - General Exam Comments Initial Comments: This is a 31-year-old female. Alert and oriented. No acute distress. (Shayy Rodriguez) Course Vital Signs 07/29/21 13:54 Temperature 98.8 F Pulse Rate 78 Respiratory 18 Rate Blood Pressure 131/67 O2 Sat by Pulse 100 Oximetry Medical Decision Making <Shayy Rodriguez - Last Filed: 07/29/21 15:26> - Lab Data Result diagrams: 07/29/21 15:09 <Sonja Alford - Last Filed: 07/29/21 17:07> - Medical Decision Making Patient is a 31-year-old female with recent diagnosis of with lower abdominal pressure today. She has no vaginal bleeding or discharge. Awaiting lab results and US. Case signed to PA. (Shayy Rodriguez) Case was signed out to me by Shayy Rodriguez who had already ordered all labs, imaging and performed a pelvic exam. This 31-year-old female who is presents with recent diagnosis of complaining of abdominal pressure earlier today. On my evaluation, patient did not have any symptoms and denied any abdominal pressure or pelvic pain/pressure at this time. Labs with hem oglobin 12.6, hematocrit 39.6, serum hCG 1881.8. Urine unremarkable. Patient with a type A positive. Transvaginal ultrasound without any evidence of intrauterine gestational sac with positive beta hCG. This can be seen in early , ectopic and spontaneous . Follow-up pelvic ultrasound 5-7 days and serial beta hCG studies are recommended. Adnexa appears within normal limits and no free fluid present. Corpus luteal cyst: Yes, right ovary. I did discuss this case with , the OBGYN on-call and did review all labs, vital signs, patient's symptoms and transvaginal ultrasound impression/findings who instructed me to give patient prescription for repeat serum beta hCG on Sunday afternoon around 3 PM with instructions for patient to follow-up at their office on Sunday. Patient does have her first scheduled appointment with on August 04. However, I did instruct patient to call the office on Sunday and informed her that she will likley be seen at the office on Sunday. Patient instructed and given serum beta-hCG prescription to get drawn on Sunday afternoon. Patient verbally agreed to plan. Prior to discharge patient did not have any symptoms or complaints. Strict return precautions were discussed with patient. Patient sent home in stable condition. Case discussed in detail with my attending, . (Sonja Alford) - Lab Data Lab Results 07/29/21 07/29/21 07/29/21 Range/Units 15:09 15:09 15:09 WBC 9.0 (3.8-10.6) k/uL RBC 4.27 (3.80-5.40) m/uL Hgb 12.6 (11.4-16.0) gm/dL Hct 39.6 (34.0-46.0) % MCV 92.8 (80.0-100.0) fL MCH 29.6 (25.0-35.0) pg MCHC 31.9 (31.0-37.0) g/dL RDW 13.9 (11.5-15.5) % Plt Count 288 (150-450) k/uL MPV 7.2 Neutrophils % 66 % Lymphocytes % 27 % Monocytes % 4 % Eosinophils % 2 % Basophils % 1 % Neutrophils # 5.9 (1.3-7.7) k/uL Lymphocytes # 2.4 (1.0-4.8) k/uL Monocytes # 0.3 (0-1.0) k/uL Eosinophils # 0.1 (0-0.7) k/uL Basophils # 0.1 (0-0.2) k/uL PT 10.3 (9.0-12.0) sec INR 0.9 (<1.2) APTT 23.3 (22.0-30.0) sec HCG, Quant mIU/mL Urine Color Light Yellow Urine Appearance Clear (Clear) Urine pH 5.5 (5.0-8.0) Ur Specific [place] 1.008 (1.001-1.035) Urine Protein Negative (Negative) Urine Glucose (UA) Negative (Negative) Urine Ketones Negative (Negative) Urine Blood Negative (Negative) Urine Nitrite Negative (Negative) Urine Bilirubin Negative (Negative) Urine Urobilinogen <2.0 (<2.0) mg/dL Ur Leukocyte Esterase Negative (Negative) Urine HCG, Qual (Not Detectd) Blood Type Blood Type Recheck Bld Type Recheck Status 07/29/21 07/29/21 07/29/21 Range/Units 15:09 15:09 15:09 WBC (3.8-10.6) k/uL RBC (3.80-5.40) m/uL Hgb (11.4-16.0) gm/dL Hct (34.0-46.0) % MCV (80.0-100.0) fL MCH (25.0-35.0) pg MCHC (31.0-37.0) g/dL RDW (11.5-15.5) % Plt Count (150-450) k/uL MPV Neutrophils % % Lymphocytes % % Monocytes % % Eosinophils % % Basophils % % Neutrophils # (1.3-7.7) k/uL Lymphocytes # (1.0-4.8) k/uL Monocytes # (0-1.0) k/uL Eosinophils # (0-0.7) k/uL Basophils # (0-0.2) k/uL PT (9.0-12.0) sec INR (<1.2) APTT (22.0-30.0) sec HCG, Quant 1881.8 mIU/mL Urine Color Urine Appearance (Clear) Urine pH (5.0-8.0) Ur Specific [place] (1.001-1.035) Urine Protein (Negative) Urine Glucose (UA) (Negative) Urine Ketones (Negative) Urine Blood (Negative) Urine Nitrite (Negative) Urine Bilirubin (Negative) Urine Urobilinogen (<2.0) mg/dL Ur Leukocyte Esterase (Negative) Urine HCG, Qual Detected (Not Detectd) Blood Type A Positive Blood Type Recheck A Pos Bld Type Recheck Status No Disposition <Shayy Rodriguez - Last Filed: 07/29/21 15:26> Is patient prescribed a controlled substance at d/c from ED?: No Time of Disposition: 16:42 <Sonja Alford - Last Filed: 07/29/21 17:07> Clinical Impression: Elevated serum hCG Disposition: HOME SELF-CARE Condition: Stable Additional Instructions: Please return for repeat serum beta hCG on Sunday around 3 PM, bring the prescription given to you here. Call office on Sunday morning for follow-up appointment. Return to the emergency department with any new, worsening, or concerning symptoms. Referrals: Rae Mercedes MD [Primary Care Provider] - 1-2 days Lata Snyder MD [STAFF PHYSICIAN] - 1-2 days
[2021-07-29 15:27] LABS: Basophils # (A) 0.1 k/uL (0-0.2); Basophils % (A) 1 %; Eosinophils # (A) 0.1 k/uL (0-0.7); Eosinophils % (A) 2 %; HCT 39.6 % (34.0-46.0); HGB 12.6 gm/dL (11.4-16.0); Lymphocytes # (A) 2.4 k/uL (1.0-4.8); Lymphocytes % (A) 27 %; MCH 29.6 pg (25.0-35.0); MCHC 31.9 g/dL (31.0-37.0); MCV 92.8 fL (80.0-100.0); Mean Platelet Volume 7.2; Monocytes # (A) 0.3 k/uL (0-1.0); Monocytes % (A) 4 %; Neutrophils # (A) 5.9 k/uL (1.3-7.7); Neutrophils % (A) 66 %; Platelet Count 288 k/uL (150-450); RBC 4.27 m/uL (3.80-5.40); RDW 13.9 % (11.5-15.5)
[2021-07-29 15:28] LABS: Appearance,Urine Clear (Clear); Bilirubin,Urine Negative (Negative); Blood,Urine Negative (Negative); Color,Urine Light Yellow; Glucose,Urine (UA) Negative (Negative); Ketones,Urine Negative (Negative); Leukocyte Esterase,Urine Negative (Negative); Nitrite,Urine Negative (Negative); PH, Urine 5.5 (5.0-8.0); Protein,Urine Negative (Negative); Specific Gravity,Urine 1.008 (1.001-1.035); Urobilinogen,Urine <2.0 mg/dL (<2.0)
[2021-07-29 15:38] LABS: INR 0.9 (<1.2); Partial Thromboplastin Time 23.3 sec (22.0-30.0); Prothrombin Time 10.3 sec (9.0-12.0)
--- NOTE | 2021-07-29 16:20 | US ---
EXAMINATION TYPE: Transabdominal DATE OF EXAM: 07/29/2021 4:02 PM COMPARISON: NONE CLINICAL HISTORY: lower abdominal pain, r/o ectopic . Pelvic pain EXAM PERFORMED: Transvaginal (TV) and Transabdominal (TA) EXAM MEASUREMENTS: GESTATIONAL AGE / DATING Physician Established: Not yet established Dates by LMP: LMP unknown Dates by First Scan: No previous this is first scan Dates by Current Scan for: No IUP seen at this time MATERNAL ANATOMY Uterus: 7.9 x 5.0 x 5.7cm Right Ovary: 3.2 x 1.8 x 2.3cm Left Ovary: 3.3 x 1.8 x 1.9cm Post CDS / Adnexa: appears wnl Presence of free fluid: no Presence of corpus luteal cyst: yes, right ovary = 2.4 x 1.8 x 1.4cm GESTATION / SURVEY IUP: No IUP seen at this time Date of LMP: unknown Beta HcG (if available): 1881 IMPRESSION: No evidence of intrauterine gestational sac in this patient with a positive B-hCG. This can be seen i n early , ectopic and spontaneous . Follow up pelvic ultrasound in 5-7 day s and serial beta hCG studies are recommended.
[2021-07-29 17:06] VITALS: BP 128/70; PULSE 76
== END 2021-07-29 17:02 | disposition home or self-care (01) ==
LOC: EC 13:53
DX: R89.1 Abnormal level of hormones in specimens from other organs, systems and tissues (principal); R10.30 Lower abdominal pain, unspecified
CPT/HCPCS: 36415; 76801; 76817; 81003; 81025; 84702; 85025; 85610; 85730; 86900; 86901; 99284

== ENCOUNTER → 2021-07-31 | Outpatient (CLI) | payer MEDICAID | END | disposition home or self-care (01) | LOC: LABMAIN 15:08 | PROVIDERS: ATTEND Physician Assistant | DX: Z00.00 Encounter for general adult medical examination without abnormal findings (principal); O20.0 Threatened abortion; Z3A.00 Weeks of gestation of pregnancy not specified | CPT/HCPCS: 84702 ==

== ENCOUNTER → 2021-08-02 | Outpatient (CLI) | payer MEDICAID | END | disposition home or self-care (01) | LOC: LABWHC1 13:53 | PROVIDERS: ATTEND Obstetrics & Gynecology | DX: O20.0 Threatened abortion (principal); Z3A.00 Weeks of gestation of pregnancy not specified | CPT/HCPCS: 36415; 84702 ==

== ENCOUNTER → 2021-12-07 | Outpatient (CLI) | payer MEDICAID ==
[2021-12-07 10:46] LABS: T4, Free (Free Thyroxine) 1.57 ng/dL (0.800-1.800)
== END | disposition home or self-care (01) ==
LOC: LABWHC1 07:01
PROVIDERS: ATTEND Internal Medicine
DX: C73 Malignant neoplasm of thyroid gland (principal); E89.0 Postprocedural hypothyroidism
CPT/HCPCS: 36415; 84432; 84439; 84443; 86800

== ENCOUNTER → 2022-02-03 | Outpatient (CLI) | payer MEDICAID ==
--- NOTE | 2022-02-03 14:18 | US ---
EXAMINATION TYPE: US thyroid st tissue head/neck DATE OF EXAM: 02/03/2022 COMPARISON: NONE CLINICAL HISTORY: C73 MALIGNANT NEOPLASM OF THYROID GLAND. thyroidectomy 2019, f/u GLAND SIZE: Right Lobe: Surgically absent Left Lobe: 6.0 x 2.1 x 1.7 cm Overall Parenchyma: heterogeneous Isthmus Thickness: 0.4 cm NODULES No residual seen on the right LEFT: # of nodules measured on left: 0 ISTHMUS: # of nodules measured in the isthmus: 0 Bilateral neck scanned, no evidence of lymphadenopathy. IMPRESSION: Postoperative changes with the removal of the right thyroid lobe without residual tissue seen. The le ft thyroid lobe is enlarged and heterogenous. No nodules present.
[2022-02-04 00:54] LABS: T4, Free (Free Thyroxine) 1.09 ng/dL (0.800-1.800)
== END | disposition home or self-care (01) ==
LOC: RADUSWWP 13:36
PROVIDERS: ATTEND Internal Medicine
DX: C73 Malignant neoplasm of thyroid gland (principal); E89.0 Postprocedural hypothyroidism
CPT/HCPCS: 76536; 84439; 84443

== ENCOUNTER 2022-08-05 13:45 | Emergency (ER) | payer MEDICAID ==
[2022-08-05 13:53] VITALS: RESP 16; TEMP 97.7
[2022-08-05] MEDS ORDERED: SODIUM CHLORIDE 0.9% 1,000 ML IV STA (14:51)
[2022-08-05] MEDS ORDERED: KETOROLAC 15 MG/ML 1 ML VIAL IVP STA (14:51)
--- NOTE | 2022-08-05 15:10 | ED ---
Back Pain HPI - General Chief Complaint: Back Pain/Injury Stated Complaint: Covid+,back/shoulder pain Time Seen by Provider: 08/05/22 13:53 Source: patient, RN notes reviewed, old records reviewed Limitations: no limitations - History of Present Illness Initial Comments: This is a 32-year-old female to the ER today. Patient Dese for evaluation of back pain. Recent diagnosis coronavirus maybe some occasional shortness breath that nothing significant. No prior history of similar back pain pain is down both sides or back for mid upper back following down her buttocks. No trauma. Patient was without difficulty. MD Complaint: back pain -: hour(s) Similar Symptoms Previously: Yes Place: home Radiation: none Severity: mild Quality: sharp, stabbing, aching Consistency: constant Improves With: none Context: other (Recent coronavirus diagnosis) Associated Symptoms: denies other symptoms Treatments Prior to Arrival: other (0) - Related Data Home Medications Medication Instructions Recorded Confirmed Levothyroxine Sodium [Synthroid] 112 mcg PO DAILY 07/29/21 07/29/21 Qrp-Lifo-Anxzx Acid 1 cap PO DAILY 07/29/21 07/29/21 [-U Capsule (formulary)] metFORMIN HCL ER [Glucophage XR] 500 mg PO BID 07/29/21 07/29/21 Allergies Allergy/AdvReac Type Severity Reaction Status Date / Time No Known Allergies Allergy Verified 07/29/21 16:11 Review of Systems ROS Statement: Those systems with pertinent positive or pertinent negative responses have been documented in the HPI. ROS Other: All systems not noted in ROS Statement are negative. Past Medical History Past Medical History: Cancer, Thyroid Disorder Additional Past Medical History / Comment(s): thyroid cancer History of Any Multi-Drug Resistant Organisms: None Reported Past Surgical History: Section, Ear Surgery Additional Past Surgical History / Comment(s): thyroidectomy Past Psychological History: No Psychological Hx Reported Smoking Status: Never smoker Past Alcohol Use History: None Reported, Occasional Past Drug Use History: None Reported General Exam Limitations: no limitations General appearance: alert, in no apparent distress Head exam: Present: atraumatic, normocephalic, normal inspection Eye exam: Present: normal appearance, PERRL, EOMI. Absent: scleral icterus, conjunctival injection, periorbital swelling ENT exam: Present: normal exam, mucous membranes moist Neck exam: Present: normal inspection. Absent: tenderness, meningismus, lymphadenopathy Respiratory exam: Present: normal lung sounds bilaterally. Absent: respiratory distress, wheezes, rales, rhonchi, stridor Cardiovascular Exam: Present: regular rate, normal rhythm, normal heart sounds. Absent: systolic murmur, diastolic murmur, rubs, gallop, clicks GI/Abdominal exam: Present: soft, normal bowel sounds. Absent: distended, tenderness, guarding, rebound, rigid Extremities exam: Present: normal inspection, full ROM, normal capillary refill. Absent: tenderness, pedal edema, joint swelling, calf tenderness Back exam: Present: normal inspection, tenderness, CVA tenderness (R) (Bilateral paraspinal tenderness), paraspinal tenderness, other (Patient able to amply was no neurological deficit) Neurological exam: Present: alert, oriented X3, CN II-XII intact Psychiatric exam: Present: normal affect, normal mood Skin exam: Present: warm, dry, intact, normal color. Absent: rash Course Vital Signs 08/05/22 13:49 Temperature 97.7 F Pulse Rate 87 Respiratory 16 Rate Blood Pressure 115/71 O2 Sat by Pulse 98 Oximetry - Reevaluation(s) Reevaluation #1: 08/05/22 16:15 medical records reviewed Reevaluation #2: 08/05/22 16:15 Patient symptoms are improved Reevaluation #3: 08/05/22 16:15 patient informed results questions answered Reevaluation #4: Was pt. sent in by a medical professional or institution? @ -no Did you speak to anyone other than the patient for history? @ -no Did you review nursing and triage notes? @ -agree Were old charts reviewed? @ -prior admissions and ER evaluaions are reviewed Differential Diagnosis? @ -back pain EKG interpreted by me (3pts min.)? @ -no X-rays interpreted by me (1pt min.)? @ -no CT interpreted by me (1pt min.)? @ -no U/S interpreted by me (1pt. min.)? @ -no What testing was considered but not performed? (CT, X-rays, U/S, labs)? Why? @ -no What meds were considered but not given? Why? @ -no patient with no current complaints Did you discuss the management of the patient with other professionals? @ -no Did you reconcile home meds? @ -no Was smoking cessation discussed for >3mins.? @ -no Was critical care preformed (if so, how long)? @ -no Were there social determinants of health that impacted care today? How? (Homelessness, low income, unemployed, alcoholism, drug addiction, transport ation, low edu. Level, literacy, decrease access to med. care, detention, rehab)? @ -no Was there de-escalation of care discussed even if they declined? (Discuss DNR or withdrawal of care, Hospice)? @ -no What co-morbidities impacted this encounter? (DM, HTN, Smoking, COPD, CAD, Cancer, CVA, Hep., AIDS, mental health diagnosis, sleep apnea, morbid obesity)? @ -none Was patient admitted / discharged? @ -DC Undiagnosed new problem with uncertain prognosis? @ -multiple falls history of, R elbow abrasion Drug Therapy requiring intensive monitoring for toxicity (Heparin, Nitro, Insulin, Cardizem)? @ -no Were any procedures done? @ -no Diagnosis/symptom? @ -COVID back pain Acute, or Chronic, or Acute on Chronic? @ -acute Uncomplicated (without systemic symptoms) or Complicated (systemic symptoms)? @ -uncompicated Side effects of treatment? @ -none Exacerbation, Progression, or Severe Exacerbation] @ -no Poses a threat to life or bodily function? @ -no Medical Decision Making - Medical Decision Making 32 female to the emergency department for evaluation presents today for evaluation of positive coronavirus back pain bilateral back pain pain down both sides of her back no prior history of back pain no trauma no dysuria no problems bowel movements, no other complaints. Pain controlled here in the ER we did use computed tomography scan for PE or other cause of pain. No cause found. Patient can be discharged - Lab Data Result diagrams: 08/05/22 15:04 08/05/22 15:04 Lab Results 08/05/22 08/05/22 08/05/22 Range/Units 15: 15:04 15:04 WBC 5.8 (3.8-10.6) k/uL RBC 4.58 (3.80-5.40) m/uL Hgb 13.8 (11.4-16.0) gm/dL Hct 41.7 (34.0-46.0) % MCV 91.1 (80.0-100.0) fL MCH 30.2 (25.0-35.0) pg MCHC 33.1 (31.0-37.0) g/dL RDW 13.3 (11.5-15.5) % Plt Count 284 (150-450) k/uL MPV 7.3 Neutrophils % 60 % Lymphocytes % 32 % Monocytes % 3 % Eosinophils % 3 % Basophils % 0 % Neutrophils # 3.4 (1.3-7.7) k/uL Lymphocytes # 1.8 (1.0-4.8) k/uL Monocytes # 0.2 (0-1.0) k/uL Eosinophils # 0.2 (0-0.7) k/uL Basophils # 0.0 (0-0.2) k/uL Sodium 140 (137-145) mmol/L Potassium 4.3 (3.5-5.1) mmol/L Chloride 105 (98-107) mmol/L Carbon Dioxide 27 (22-30) mmol/L Anion Gap 8 mmol/L BUN 8 (7-17) mg/dL Creatinine 0.55 (0.52-1.04) mg/dL Est GFR (CKD-EPI)AfAm >90 (>60 ml/min/1.73 sqM) Est GFR (CKD-EPI)NonAf >90 (>60 ml/min/1.73 sqM) Glucose 109 H (74-99) mg/dL Calcium 8.9 (8.4-10.2) mg/dL Total Bilirubin 0.4 (0.2-1.3) mg/dL AST 18 (14-36) U/L ALT 20 (4-34) U/L Alkaline Phosphatase 52 (38-126) U/L Total Protein 7.5 (6.3-8.2) g/dL Albumin 4.3 (3.5-5.0) g/dL Amylase 53 (30-110) U/L Lipase 58 (23-300) U/L Urine Color Yellow Urine Appearance Clear (Clear) Urine pH 5.5 (5.0-8.0) Ur Specific [place] 1.027 (1.001-1.035) Urine Protein Trace H (Negative) Urine Glucose (UA) Negative (Negative) Urine Ketones Negative (Negative) Urine Blood Negative (Negative) Urine Nitrite Negative (Negative) Urine Bilirubin Negative (Negative) Urine Urobilinogen <2.0 (<2.0) mg/dL Ur Leukocyte Esterase Small H (Negative) Urine RBC 4 (0-5) /hpf Urine WBC 3 (0-5) /hpf Ur Squamous Epith Cells 5 H (0-4) /hpf Urine Mucus Few H (None) /hpf Urine HCG, Qual (Not Detectd) 08/05/22 Range/Units 15:04 WBC (3.8-10.6) k/uL RBC (3.80-5.40) m/uL Hgb (11.4-16.0) gm/dL Hct (34.0-46.0) % MCV (80.0-100.0) fL MCH (25.0-35.0) pg MCHC (31.0-37.0) g/dL RDW (11.5-15.5) % Plt Count (150-450) k/uL MPV Neutrophils % % Lymphocytes % % Monocytes % % Eosinophils % % Basophils % % Neutrophils # (1.3-7.7) k/uL Lymphocytes # (1.0-4.8) k/uL Monocytes # (0-1.0) k/uL Eosinophils # (0-0.7) k/uL Basophils # (0-0.2) k/uL Sodium (137-145) mmol/L Potassium (3.5-5.1) mmol/L Chloride (98-107) mmol/L Carbon Dioxide (22-30) mmol/L Anion Gap mmol/L BUN (7-17) mg/dL Creatinine (0.52-1.04) mg/dL Est GFR (CKD-EPI)AfAm (>60 ml/min/1.73 sqM) Est GFR (CKD-EPI)NonAf (>60 ml/min/1.73 sqM) Glucose (74-99) mg/dL Calcium (8.4-10.2) mg/dL Total Bilirubin (0.2-1.3) mg/dL AST (14-36) U/L ALT (4-34) U/L Alkaline Phosphatase (38-126) U/L Total Protein (6.3-8.2) g/dL Albumin (3.5-5.0) g/dL Amylase (30-110) U/L Lipase (23-300) U/L Urine Color Urine Appearance (Clear) Urine pH (5.0-8.0) Ur Specific [place] (1.001-1.035) Urine Protein (Negative) Urine Glucose (UA) (Negative) Urine Ketones (Negative) Urine Blood (Negative) Urine Nitrite (Negative) Urine Bilirubin (Negative) Urine Urobilinogen (<2.0) mg/dL Ur Leukocyte Esterase (Negative) Urine RBC (0-5) /hpf Urine WBC (0-5) /hpf Ur Squamous Epith Cells (0-4) /hpf Urine Mucus (None) /hpf Urine HCG, Qual Not Detected (Not Detectd) - Radiology Data Radiology results: report reviewed (CT chest CT pelvis negative for acute disease), image reviewed Disposition Clinical Impression: Mechanical back pain, Thoracic back pain, Mid back pain Disposition: HOME SELF-CARE Condition: Good Instructions (If sedation given, give patient instructions): Acute Low Back Pain (ED) Is patient prescribed a controlled substance at d/c from ED?: No Referrals: Rae Mercedes MD [Primary Care Provider] - 1-2 days Time of Disposition: 16:14
[2022-08-05 15:18] LABS: Basophils % (A) 0 %; Eosinophils # (A) 0.2 k/uL (0-0.7); Eosinophils % (A) 3 %; HCT 41.7 % (34.0-46.0); HGB 13.8 gm/dL (11.4-16.0); Lymphocytes # (A) 1.8 k/uL (1.0-4.8); Lymphocytes % (A) 32 %; MCH 30.2 pg (25.0-35.0); MCHC 33.1 g/dL (31.0-37.0); MCV 91.1 fL (80.0-100.0); Mean Platelet Volume 7.3; Monocytes # (A) 0.2 k/uL (0-1.0); Monocytes % (A) 3 %; Neutrophils # (A) 3.4 k/uL (1.3-7.7); Neutrophils % (A) 60 %; Platelet Count 284 k/uL (150-450); RBC 4.58 m/uL (3.80-5.40); RDW 13.3 % (11.5-15.5); WBC 5.8 k/uL (3.8-10.6)
[2022-08-05 15:26] LABS: Appearance,Urine Clear (Clear); Bilirubin,Urine Negative (Negative); Blood,Urine Negative (Negative); Color,Urine Yellow; Glucose,Urine (UA) Negative (Negative); Ketones,Urine Negative (Negative); Leukocyte Esterase,Urine Small (Negative); Mucus,Urine Few /hpf; Nitrite,Urine Negative (Negative); PH, Urine 5.5 (5.0-8.0); Protein,Urine Trace (Negative); RBC,Urine 4 /hpf (0-5); Specific Gravity,Urine 1.027 (1.001-1.035); Squamous Epithelial Cell,Urine 5 /hpf (0-4); Urobilinogen,Urine <2.0 mg/dL (<2.0); WBC,Urine 3 /hpf (0-5)
[2022-08-05 15:31] LABS: ALT 20 U/L (4-34); AST 18 U/L (14-36); African American GFR (CKD) >90 (>60 ml/min/1.73 sqM); Albumin 4.3 g/dL (3.5-5.0); Alkaline Phosphatase 52 U/L (38-126); Amylase 53 U/L (30-110); Anion Gap 8 mmol/L; Blood Urea Nitrogen 8 mg/dL (7-17); Calcium 8.9 mg/dL (8.4-10.2); Carbon Dioxide 27 mmol/L (22-30); Chloride 105 mmol/L (98-107); Glucose 109 mg/dL (74-99); Lipase 58 U/L (23-300); Non-African American GFR(CKD) >90 (>60 ml/min/1.73 sqM); Potassium 4.3 mmol/L (3.5-5.1); Sodium 140 mmol/L (137-145); Total Bilirubin 0.4 mg/dL (0.2-1.3); Total Protein 7.5 g/dL (6.3-8.2)
--- NOTE | 2022-08-05 16:02 | CT ---
EXAMINATION TYPE: CT angio chest DATE OF EXAM: 08/05/2022 3:52 PM COMPARISON: None HISTORY: covid, chest pain CT DLP: 1940.4 mGycm Automated exposure control for dose reduction was used. CONTRAST: CTA scan of the thorax is performed with IV Contrast, patient injected with 100 mL of Isovue 370, pul monary embolism protocol. 3-D postprocessing was performed.. FINDINGS: LUNGS: The lungs are grossly clear, there is no concerning parenchymal mass or nodule identified. T here is no pleural effusion or pneumothorax seen. The tracheobronchial tree is patent. MEDIASTINUM: There is satisfactory enhancement of the pulmonary artery and its branches, there is no CT evidence for pulmonary embolism. There are no greater than 1 cm hilar or mediastinal lymph nodes. No pericardial effusion is seen. OTHER: No additional significant abnormality is seen. IMPRESSION: 1. NO EVIDENCE OF PULMONARY EMBOLISM. 2. NO ACUTE CARDIOPULMONARY DISEASE.
--- NOTE | 2022-08-05 16:05 | CT ---
EXAMINATION TYPE: CT abdomen pelvis w con DATE OF EXAM: 08/05/2022 COMPARISON: None HISTORY: abd pain CT DLP: 1940.4 mGycm Automated exposure control for dose reduction was used. TECHNIQUE: Helical acquisition of images was performed from the lung bases through the pelvis. CONTRAST: Performed without Oral Contrast and with IV Contrast, patient injected with 100 mL of Isovue 370. FINDINGS: The lung bases are clear. Gallbladder is normal without wall thickening, distention, gallstones or pericholecystic fluid. There is no biliary ductal dilatation. There is no focal mass or organomegaly involving the liver, pancreas, spleen or adrenal glands. The kidneys excrete contrast promptly and symmetrically. No solid renal mass or hydronephrosis. There is no retroperitoneal adenopathy or hemorrhage in the caliber of the abdominal aorta is normal. The bowel loops are normal in caliber and there is no dilatation or obstruction. No inflammatory taylor ges are identified in the bowel wall or mesentery. There is no free intraperitoneal air or fluid. There is no pelvic mass, free fluid, abscess or adenopathy. The osseous structures are intact. IMPRESSION: No significant abnormality seen.
[2022-08-05] MEDS ORDERED: DEXAMETHASONE SOD PHOSPHATE 10 MG/ML 1 ML VIAL IVP STA (16:14)
[2022-08-05 16:49] VITALS: BP 112/67; PULSE 74
== END 2022-08-05 16:49 | disposition home or self-care (01) ==
LOC: EC 13:45
DX: M54.6 Pain in thoracic spine (principal); E07.9 Disorder of thyroid, unspecified; Z79.890 Hormone replacement therapy
CPT/HCPCS: 36415; 80053; 82150; 83690; 85025; 81001; 81025; 71275; 74177; 99284; 96374; 96375; 96361; J1100; J1885; Q9967

== ENCOUNTER → 2023-08-30 | Outpatient (CLI) | payer MEDICAID ==
--- NOTE | 2023-08-30 10:34 | US ---
EXAMINATION TYPE: US thyroid st tissue head/neck DATE OF EXAM: 08/30/2023 COMPARISON: NONE CLINICAL INDICATION: Female, 33 years old with history of C73 MALIGNANT NEOPLASM OF THYROID GLAND; th y ca /2 of right side removed 2018 GLAND SIZE: Right Lobe: 2.8 x .9 x .6 cm Overall Parenchyma: homogeneous Left Lobe: 5.8 x 1.3 x 1.9 cm Overall Parenchyma: homogeneous Isthmus Thickness: .3 cm NODULES RIGHT: # of nodules measured on right: 0 LEFT: # of nodules measured on left: 0 ISTHMUS: # of nodules measured in the isthmus: 0 Bilateral neck scanned, no evidence of lymphadenopathy. IMPRESSION: 1. Diminutive right lobe of the thyroid gland consistent with history of partial resection. 2. No thyroid masses. 3. No adenopathy in the visualized portion of the neck. 2017 ACR TI-RADS LEVEL: 0 *Highest TI-RADS level nodule reported
[2023-08-30 16:12] LABS: BUN/Creat Ratio 18.29 Ratio (12.00-20.00); Blood Urea Nitrogen 12.8 mg/dL (9.0-27.0); Calcium 9.4 mg/dL (8.7-10.3); Carbon Dioxide 22.7 mmol/L (21.6-31.8); Chloride 106 mmol/L (96-109); Glucose 141 mg/dL (70-110); Potassium 4.3 mmol/L (3.5-5.5); Sodium 142 mmol/L (135-145)
== END | disposition home or self-care (01) ==
LOC: RADUSWWP 08:57
PROVIDERS: ATTEND Internal Medicine
DX: C73 Malignant neoplasm of thyroid gland (principal)
CPT/HCPCS: 36415; 76536; 80048; 84432; 86800

== ENCOUNTER 2024-03-10 22:16 | Emergency (ER) | payer MEDICAID ==
[2024-03-10 23:19] LABS: Basophils % (A) 0 %; Eosinophils # (A) 0.2 k/uL (0-0.7); Eosinophils % (A) 2 %; HCT 40.1 % (34.0-46.0); HGB 13.2 gm/dL (11.4-16.0); Lymphocytes # (A) 2.9 k/uL (1.0-4.8); Lymphocytes % (A) 29 %; MCH 30.4 pg (25.0-35.0); MCHC 32.8 g/dL (31.0-37.0); MCV 92.6 fL (80.0-100.0); Monocytes # (A) 0.4 k/uL (0-1.0); Monocytes % (A) 4 %; Neutrophils # (A) 6.6 k/uL (1.3-7.7); Neutrophils % (A) 65 %; Platelet Count 321 k/uL (150-450); RBC 4.34 m/uL (3.80-5.40); RDW 13.3 % (11.5-15.5); WBC 10.1 k/uL (3.8-10.6)
[2024-03-10 23:35] VITALS: RESP 17
[2024-03-10 23:37] LABS: Partial Thromboplastin Time 25.4 sec (22.0-30.0); Prothrombin Time 11.1 sec (10.0-12.5)
[2024-03-10] MEDS: SODIUM CHLORIDE 0.9% 500 ML 500 ML IV STA (23:46)
--- NOTE | 2024-03-10 23:51 | ED ---
General Adult HPI - General Chief complaint: ENT Stated complaint: Facial/Tongue Numbness Time Seen by Provider: 03/10/24 22:40 Source: patient Mode of arrival: ambulatory Limitations: no limitations - History of Present Illness Initial comments: 33-year-old female presenting with chief complaint of numbness on the left side of her tongue. This started around 2100. Patient states that then she started to have some numbness on the left side of her face. She had some ringing in her left ear as well. She also states that she feels like there is a "ball" in her throat when she swallows. Patient has history of thyroid cancer with partial resection of the right lobe back in 2019. No difficulty breathing. Patient states that she did have less than a minute of some chest tightness earlier. No cough, congestion, sore throat, fever, chills. No nausea vomiting dizziness or headache. - Related Data Home Medications Medication Instructions Recorded Confirmed Levothyroxine Sodium [Synthroid] 112 mcg PO DAILY 07/29/21 07/29/21 Phr-Ewjx-Fxbun Acid 1 cap PO DAILY 07/29/21 07/29/21 [-U Capsule (formulary)] metFORMIN HCL ER [Glucophage XR] 500 mg PO BID 07/29/21 07/29/21 Allergies Allergy/AdvReac Type Severity Reaction Status Date / Time No Known Allergies Allergy Verified 07/29/21 16:11 Review of Systems ROS Statement: Those systems with pertinent positive or pertinent negative responses have been documented in the HPI. ROS Other: All systems not noted in ROS Statement are negative. Past Medical History Past Medical History: Cancer, Thyroid Disorder Additional Past Medical History / Comment(s): thyroid cancer History of Any Multi-Drug Resistant Organisms: None Reported Past Surgical History: Section, Ear Surgery Additional Past Surgical History / Comment(s): thyroidectomy Past Psychological History: No Psychological Hx Reported Smoking Status: Never smoker Past Alcohol Use History: None Reported Past Drug Use History: None Reported General Exam Limitations: no limitations General appearance: alert, in no apparent distress Head exam: Present: atraumatic, normocephalic, normal inspection Eye exam: Present: normal appearance, PERRL, EOMI Pupils: Present: normal accommodation Neck exam: Present: normal inspection. Absent: meningismus Respiratory exam: Present: normal lung sounds bilaterally. Absent: respiratory distress, wheezes, rales, rhonchi, stridor Cardiovascular Exam: Present: regular rate, normal rhythm, normal heart sounds. Absent: systolic murmur, diastolic murmur, rubs, gallop, clicks Extremities exam: Present: normal inspection, full ROM Neurological exam: Present: alert, oriented X3 Expanded Patient oriented to: Present: person, place, time Speech: Present: fluid speech Cranial nerves: EOM's Intact: Normal, Tongue Deviation: Normal, Facial Sensation: Normal Cerebellar function: Finger to Nose: Normal, Heel to [place]: Normal Sensory exam: Upper Extremity Light Touch: Normal, Lower Extremity Light Touch: Normal Motor strength exam: RUE: 5, LUE: 5, RLE: 5, LLE: 5 Eye Response: (4) open spontaneously Motor Response: (6) obeys commands Verbal Response: (5) oriented [place] Total: 15 Psychiatric exam: Present: normal affect, normal mood Skin exam: Present: warm, dry Course Vital Signs 03/10/24 03/10/24 03/11/24 22:22 23:33 00:47 Temperature 98.5 F 97.8 F Pulse Rate 95 87 69 Respiratory 18 17 17 Rate Blood Pressure 126/86 120/74 106/64 O2 Sat by Pulse 97 99 99 Oximetry Medical Decision Making - Medical Decision Making Was pt. sent in by a medical professional or institution (KHADIJAH [place], STONECUTTER ASSISTANT, urgent care, hospital, or alf...) When possible be specific @ -No Did you speak to anyone other than the patient for history (EMS, parent, family, police, friend...)? What history was obtained from this source @ -No Did you review nursing and triage notes (agree or disagree)? Why? @ -I reviewed and agree with nursing and triage notes Were old charts reviewed (outside hosp., previous admission, EMS record, old EKG, old radiological studies, urgent care reports/EKG's, alf records)? Report findings @ -No old charts were reviewed Differential Diagnosis (chest pain, altered mental status, abdominal pain women, abdominal pain men, vaginal bleeding, weakness, fever, dyspnea, syncope, headache, dizziness, GI bleed, back pain, seizure, CVA, palpatations, mental he alth, musculoskeletal)? @ -Differential CVA Ischemic stroke, hemorrhagic stroke, brain tumor, atypical migraine, Wernicke's encephalopathy, seizure, multiple sclerosis, meningitis, encephalitis, hyp oglycemia, Guillain-Dennis, electrolytes disturbance, myasthenia gravis.... This is not meant to be an all-inclusive list EKG interpreted by me (3pts min.). @ -EKG shows sinus rhythm ventricular rate 76. SD interval 155. QRS 100. QT 354. QTc 384. X-rays interpreted by me (1pt min.). @ -None done CT interpreted by me (1pt min.). @ -CT brain without contrast shows no acute intracranial hemorrhage or midline shift CTA of the head and neck shows no significant abnormalities U/S interpreted by me (1pt. min.). @ -None done What testing was considered but not performed or refused? (CT, X-rays, U/S, labs)? Why? @ -None What meds were considered but not given or refused? Why? @ -None Did you discuss the management of the patient with other professionals (professionals i.e. , PA, STONECUTTER ASSISTANT, lab, RT, psych nurse, social economist, functional consultant, teacher, civil preparedness officer, manager case)? Give summary @ -No Was smoking cessation discussed for >3mins.? @ -No Was critical care preformed (if so, how long)? @ -No Were there social determinants of health that impacted care today? How? (Homelessness, low income, unemployed, alcoholism, drug addiction, transportation, low edu. Level, literacy, decrease access to med. care, custodial, rehab)? @ -No Was there de-escalation of care discussed even if they declined (Discuss DNR or withdrawal of care, Hospice)? DNR status @ -No What co-morbidities impacted this encounter? (DM, HTN, Smoking, COPD, CAD, Cancer, CVA, ARF, Chemo, Hep., AIDS, mental health diagnosis, sleep apnea, morbid obesity)? @ -None Was patient admitted / discharged? Hospital course, mention meds given and route, prescriptions, significant lab abnormalities, going to OR and other pertinent info. @ -33-year-old female presenting with chief complaint of numbness to the left side of her tongue and face. History and physical examination are conducted. NIH is 0. Lab work is essentially unremarkable. No acute process seen on CT brain without contrast or CT angio of the head and neck. On reassessment patient reports that the numbness/tingling has improved. She is educated on tod ay's results. ABCD2 score of 2. She feels comfortable with discharge home. Follow-up with PCP. Report back to ER with any new or worsening symptoms. Discussed return parameters and answered all questions. Patient conveyed verbal understanding and agreed to the plan. I discussed this case in detail with my attending Dr. Carr Undiagnosed new problem with uncertain prognosis? @ -No Drug Therapy requiring intensive monitoring for toxicity (Heparin, Nitro, Insulin, Cardizem)? @ -No Were any procedures done? @ -No Diagnosis/symptom? @ -Paresthesia Acute, or Chronic, or Acute on Chronic? @ -Acute Uncomplicated (without systemic symptoms) or Complicated (systemic symptoms)? @ -Uncomplicated Side effects of treatment? @ -No Exacerbation, Progression, or Severe Exacerbation? @ -No Poses a threat to life or bodily function? How? (Chest pain, [place], [place], pneumonia, PE, COPD, DKA, ARF, appy, cholecystitis, CVA, Diverticulitis, Homicidal, Suicidal, threat to staff... and all critical care pts) @ -Low likelihood - Lab Data Result diagrams: 03/10/24 23:06 03/10/24 23:06 Lab Results 03/10/24 03/10/24 03/10/24 Range/Units 23:06 23:06 23:06 WBC 10.1 (3.8-10.6) k/uL RBC 4.34 (3.80-5.40) m/uL Hgb 13.2 (11.4-16.0) gm/dL Hct 40.1 (34.0-46.0) % MCV 92.6 (80.0-100.0) fL MCH 30.4 (25.0-35.0) pg MCHC 32.8 (31.0-37.0) g/dL RDW 13.3 (11.5-15.5) % Plt Count 321 (150-450) k/uL MPV 7.0 Neutrophils % 65 % Lymphocytes % 29 % Monocytes % 4 % Eosinophils % 2 % Basophils % 0 % Neutrophils # 6.6 (1.3-7.7) k/uL Lymphocytes # 2.9 (1.0-4.8) k/uL Monocytes # 0.4 (0-1.0) k/uL Eosinophils # 0.2 (0-0.7) k/uL Basophils # 0.0 (0-0.2) k/uL PT 11.1 (10.0-12.5) sec INR 1.0 (<1.2) APTT 25.4 (22.0-30.0) sec Sodium 137 (137-145) mmol/L Potassium 3.8 (3.5-5.1) mmol/L Chloride 106 (98-107) mmol/L Carbon Dioxide 25 (22-30) mmol/L Anion Gap 6 mmol/L BUN 14 (7-17) mg/dL Creatinine 0.59 (0.52-1.04) mg/dL Est GFR (CKD-EPI)AfAm >90 (>60 ml/min/1.73 sqM) Est GFR (CKD-EPI)NonAf >90 (>60 ml/min/1.73 sqM) Glucose 120 H (74-99) mg/dL Calcium 9.6 (8.4-10.2) mg/dL Total Bilirubin 0.8 (0.2-1.3) mg/dL AST 21 (14-36) U/L ALT 15 (4-34) U/L Alkaline Phosphatase 47 (38-126) U/L Troponin I (0.000-0.034) ng/mL Total Protein 7.9 (6.3-8.2) g/dL Albumin 4.7 (3.5-5.0) g/dL 03/10/24 Range/Units 23:06 WBC (3.8-10.6) k/uL RBC (3.80-5.40) m/uL Hgb (11.4-16.0) gm/dL Hct (34.0-46.0) % MCV (80.0-100.0) fL MCH (25.0-35.0) pg MCHC (31.0-37.0) g/dL RDW (11.5-15.5) % Plt Count (150-450) k/uL MPV Neutrophils % % Lymphocytes % % Monocytes % % Eosinophils % % Basophils % % Neutrophils # (1.3-7.7) k/uL Lymphocytes # (1.0-4.8) k/uL Monocytes # (0-1.0) k/uL Eosinophils # (0-0.7) k/uL Basophils # (0-0.2) k/uL PT (10.0-12.5) sec INR (<1.2) APTT (22.0-30.0) sec Sodium (137-145) mmol/L Potassium (3.5-5.1) mmol/L Chloride (98-107) mmol/L Carbon Dioxide (22-30) mmol/L Anion Gap mmol/L BUN (7-17) mg/dL Creatinine (0.52-1.04) mg/dL Est GFR (CKD-EPI)AfAm (>60 ml/min/1.73 sqM) Est GFR (CKD-EPI)NonAf (>60 ml/min/1.73 sqM) Glucose (74-99) mg/dL Calcium (8.4-10.2) mg/dL Total Bilirubin (0.2-1.3) mg/dL AST (14-36) U/L ALT (4-34) U/L Alkaline Phosphatase (38-126) U/L Troponin I <0.012 (0.000-0.034) ng/mL Total Protein (6.3-8.2) g/dL Albumin (3.5-5.0) g/dL Disposition Clinical Impression: Paresthesia Disposition: HOME SELF-CARE Condition: Good Instructions (If sedation given, give patient instructions): Paresthesia (ED) Additional Instructions: Follow-up with PCP. Report back to ER with any new or worsening symptoms. Is patient prescribed a controlled substance at d/c from ED?: No Referrals: Rae Mercedes MD [Primary Care Provider] - 1-2 days Time of Disposition: 00:41
[2024-03-10 23:54] LABS: ALT 15 U/L (4-34); AST 21 U/L (14-36); African American GFR (CKD) >90 (>60 ml/min/1.73 sqM); Albumin 4.7 g/dL (3.5-5.0); Alkaline Phosphatase 47 U/L (38-126); Anion Gap 6 mmol/L; Blood Urea Nitrogen 14 mg/dL (7-17); Calcium 9.6 mg/dL (8.4-10.2); Carbon Dioxide 25 mmol/L (22-30); Chloride 106 mmol/L (98-107); Glucose 120 mg/dL (74-99); Non-African American GFR(CKD) >90 (>60 ml/min/1.73 sqM); Potassium 3.8 mmol/L (3.5-5.1); Sodium 137 mmol/L (137-145); Total Bilirubin 0.8 mg/dL (0.2-1.3); Total Protein 7.9 g/dL (6.3-8.2)
--- NOTE | 2024-03-10 23:56 | CT ---
EXAMINATION TYPE: CT brain wo con DATE OF EXAM: 03/10/2024 COMPARISON: Prior CT brain 2011 HISTORY: Around 2100 patient left side of tongue went numb. About thirty min later the left side of h er face felt numb. Some ringing in her left ear. Feel like there is a "ball" in her throat when she s wallows. No facial deficits noted. CT DLP: 1180.4 mGycm. Automated Exposure Control for Dose Reduction was Utilized. TECHNIQUE: CT scan of the head is performed without contrast. FINDINGS: There is no acute intracranial hemorrhage, mass effect, or midline shift identified. The ventricles and sulci are within normal limits in size. Rodriguez-white matter differentiation is maintai carlos. There are small mucous retention cysts or polyps in the inferior aspect of the bilateral maxilla ry sinuses otherwise paranasal sinuses are clear. Globes are intact bilaterally. IMPRESSION: No acute intracranial hemorrhage or midline shift is seen. [facility], , 03/10/2024 11:54 PM
--- NOTE | 2024-03-11 00:01 | CT ---
EXAMINATION TYPE: CT angio head neck DATE OF EXAM: 03/10/2024 HISTORY: Around 2100 patient left side of tongue went numb. About thirty min later the left side of h er face felt numb. Some ringing in her left ear. Feel like there is a "ball" in her throat when she s wallows. No facial deficits noted. COMPARISON: NONE CT DLP: 713.8 mGycm. Automated Exposure Control for Dose Reduction was Utilized. TECHNIQUE: CTA scan of the head and neck is performed with IV Contrast, patient injected with 65ML m L of Isovue 370, axial images are obtained, coronal and sagittal reformatted images are reviewed. 3D reconstructed images are created on an independent workstation and reviewed. FINDINGS: Carotid/Vascular Structures: There is normal 3 vessel origins from aortic arch. Vertebral and carotid arteries are contiguous. No linear hypodensity to suggest dissection. Patent external carotid arteri es bilaterally. Vertebral arteries are codominant. No significant plaque or stenosis in the common or internal carotid arteries bilaterally. No large vessel occlusion or aneurysm at the level of the cir melissa of [place]. Other: Right thyroid lobe is not visualized presumed surgically absent. IMPRESSION: No significant abnormalities. NASCET criteria was used in interpretation of this exam? [facility], , 03/10/2024 11:59 PM
[2024-03-11 00:53] VITALS: BP 106/64; PULSE 69; TEMP 97.8
== END 2024-03-11 00:54 | disposition home or self-care (01) ==
LOC: EC 22:16
DX: R20.2 Paresthesia of skin (principal)
CPT/HCPCS: 36415; 93005; 80053; 84484; 85025; 85610; 85730; 70496; 70450; 70498; 99285; 96360; Q9967

== ENCOUNTER 2024-05-05 10:45 | Emergency (ER) | payer OTHER, MEDICAID ==
[2024-05-05 11:01] VITALS: RESP 18
--- NOTE | 2024-05-05 11:21 | ED ---
Upper Extremity HPI - General Chief Complaint: Extremity Injury, Upper Stated Complaint: IHS-L hand injury Time Seen by Provider: 05/05/24 11:18 Source: patient, RN notes reviewed Mode of arrival: ambulatory Limitations: no limitations - History of Present Illness Initial Comments: 33-year-old female presenting to the ER for evaluation of left finger injury 1 hour ago. Also has IHS forms as she is a [employer] employee and the injury happened at work. States the bathroom door closed on her left fourth digit. Patient is having difficulty with range of motion of left fourth digit. No other injuries. - Related Data Home Medications Medication Instructions Recorded Confirmed Levothyroxine Sodium [Synthroid] 112 mcg PO DAILY 07/29/21 07/29/21 Zth-Poln-Lznub Acid 1 cap PO DAILY 07/29/21 07/29/21 [-U Capsule (formulary)] metFORMIN HCL ER [Glucophage XR] 500 mg PO BID 07/29/21 07/29/21 Allergies Allergy/AdvReac Type Severity Reaction Status Date / Time No Known Allergies Allergy Verified 05/05/24 11:01 Review of Systems ROS Statement: Those systems with pertinent positive or pertinent negative responses have been documented in the HPI. ROS Other: All systems not noted in ROS Statement are negative. Past Medical History Past Medical History: Cancer, Thyroid Disorder Additional Past Medical History / Comment(s): thyroid cancer History of Any Multi-Drug Resistant Organisms: None Reported Past Surgical History: Section, Ear Surgery Additional Past Surgical History / Comment(s): thyroidectomy Past Psychological History: No Psychological Hx Reported Smoking Status: Never smoker Past Alcohol Use History: None Reported Past Drug Use History: None Reported General Exam Limitations: no limitations General appearance: alert, in no apparent distress Head exam: Present: atraumatic, normocephalic, normal inspection Left Forearm Wrist exam: Present: normal inspection, full ROM. Absent: tenderness, swelling Hand Wrist exam: Present: tenderness, swelling, abrasion (Minor abrasion present on lateral aspect of left fourth digit). Absent: normal inspection (Moderate edema present around PIP joint of fourth digit of left hand), full ROM Vascular: Present: normal capillary refill, radial pulse. Absent: vascular compromise Neurological exam: Present: alert, oriented X3 Psychiatric exam: Present: normal affect, normal mood Skin exam: Present: warm, dry, intact, normal color. Absent: rash Course Vital Signs 12/30/24 10:59 Temperature 98 F Pulse Rate 70 Respiratory 18 Rate Blood Pressure 123/70 O2 Sat by Pulse 97 Oximetry Medical Decision Making - Medical Decision Making Was pt. sent in by a medical professional or institution (, [facility], [facility], urgent care, hospital, or correction...) When possible be specific @ -No Did you speak to anyone other than the patient for history (EMS, parent, family, police, friend...)? What history was obtained from this source @ -No Did you review nursing and triage notes (agree or disagree)? Why? @ -I reviewed and agree with nursing and triage notes Were old charts reviewed (outside hosp., previous admission, EMS record, old EKG, old radiological studies, urgent care reports/EKG's, correction records)? Report findings @ -No old charts were reviewed Differential Diagnosis (chest pain, altered mental status, abdominal pain women, abdominal pain men, vaginal bleeding, weakness, fever, dyspnea, syncope, headach e, dizziness, GI bleed, back pain, seizure, CVA, palpatations, mental health, musculoskeletal)? @ -Differential Musculoskeletal Muscular strain, contusion, ligament sprain, fracture, arthritis, septic arthritis, bursitis, cellulitis, muscle spasm, nerve compression, DVT, arterial occlusion, herpes zoster, electrolyte abnormality, tumor.... This is not meant to be in all inclusive list EKG interpreted by me (3pts min.). @ -None X-rays interpreted by me (1pt min.). @ -X-ray left hand reveals moderate soft tissue swelling around fourth digit, no acute osseous abnormality CT interpreted by me (1pt min.). @ -None done U/S interpreted by me (1pt. min.). @ -None done What testing was considered but not performed or refused? (CT, X-rays, U/S, labs)? Why? @ -None What meds were considered but not given or refused? Why? @ -None Did you discuss the management of the patient with other professionals (professionals i.e. [facility] [place], [facility], lab, RT, psych nurse, socially responsible investment adviser, stencil typist, teacher, community development officer, business case analyst)? Give summary @ -No Was smoking cessation discussed for >3mins.? @ -No Was critical care preformed (if so, how long)? @ -No Were there social determinants of health that impacted care today? How? (Homelessness, low income, unemployed, alcoholism, drug addiction, transportation, low edu. Level, literacy, decrease access to med. care, shelter, rehab)? @ -No Was there de-escalation of care discussed even if they declined (Discuss DNR or withdrawal of care, Hospice)? DNR status @ -No What co-morbidities impacted this encounter? (DM, HTN, Smoking, COPD, CAD, Cancer, CVA, ARF, Chemo, Hep., AIDS, mental health diagnosis, sleep apnea, morbid obesity)? @ -None Was patient admitted / discharged? Hospital course, mention meds given and route, prescriptions, significant lab abnormalities, going to OR and other pertinent info. @ -Discharged. This is a 33-year-old female with left hand injury 1 hour ago. There is moderate edema surrounding the PIP joint of fourth digit. Neurovascu larly intact. X-ray left hand reveals moderate soft tissue swelling around fourth digit, no acute osseous abnormality. Results discussed with patient. Finger splint applied and instructed to follow-up with orthopedics. Case was discussed with the ED attending Dr. Shafer Undiagnosed new problem with uncertain prognosis? @ -No Drug Therapy requiring intensive monitoring for toxicity (Heparin, Nitro, Insulin, Cardizem)? @ -No Were any procedures done? @ -No Diagnosis/symptom? @ -Left finger strain Acute, or Chronic, or Acute on Chronic? @ -Acute Uncomplicated (without systemic symptoms) or Complicated (systemic symptoms)? @ -Uncomplicated Side effects of treatment? @ -No Exacerbation, Progression, or Severe Exacerbation? @ -No Poses a threat to life or bodily function? How? (Chest pain, [place], [place], pneumonia, PE, COPD, DKA, ARF, appy, cholecystitis, CVA, Diverticulitis, Homicidal, Suicidal, threat to staff... and all critical care pts) @ -No Disposition Clinical Impression: Strain of left ring finger Disposition: HOME SELF-CARE Condition: Stable Instructions (If sedation given, give patient instructions): Finger Sprain (ED) Additional Instructions: Wear finger splint at all times until orthopedic follow-up. Apply ice to affected area 3 times daily. Take Tylenol or ibuprofen as needed for pain. Please return to the Emergency Department if symptoms worsen or any other concerns. Is patient prescribed a controlled substance at d/c from ED?: No Referrals: Rae Mercedes MD [Primary Care Provider] - 1-2 days Kleber Hicks MD [Medical Doctor] - 1-2 days Time of Disposition: 12:32
--- NOTE | 2024-05-05 11:38 | XR ---
EXAMINATION TYPE: XR hand complete LT DATE OF EXAM: 05/05/2024 11:31 AM COMPARISON: None. CLINICAL INDICATION: Female, 33 years old with history of left 4th digit injury, pain TECHNIQUE: 3 view(s) obtained. FINDINGS: No acute fractures or dislocations evident. Joint spaces are preserved. There may be some mild soft t issue swelling over the ring finger proximal interphalangeal joint space. Follow-up exams can be performed 7-10 days from acute trauma for continued pain. IMPRESSION: 1. Mild soft tissue swelling proximal fourth digit. 2. No acute osseous abnormality radiographically apparent. [facility], , 05/05/2024 11:36 AM
[2024-05-05 12:37] VITALS: BP 126/72; PULSE 72; TEMP 98
== END 2024-05-05 12:38 | disposition home or self-care (01) ==
LOC: EC 10:45
DX: S69.92XA Unspecified injury of left wrist, hand and finger(s), initial encounter (principal); W23.0XXA Caught, crushed, jammed, or pinched between moving objects, initial encounter; Y99.0 Civilian activity done for income or pay
CPT/HCPCS: 99283

== ENCOUNTER → 2024-07-11 | Outpatient (CLI) | payer MEDICAID ==
[2024-07-11 16:01] LABS: Estradiol 48.9 pg/mL; T4, Free (Free Thyroxine) 1.17 ng/dL (0.80-1.80)
[2024-07-11 17:03] LABS: Follicle Stimulating Hormone 7.1 mIU/mL; Luteinizing Hormone 12.2 mIU/mL; Prolactin 6.6 ng/mL (2.800-29.200)
== END | disposition home or self-care (01) ==
LOC: LABWHC1 10:40
PROVIDERS: ATTEND Internal Medicine
DX: N92.6 Irregular menstruation, unspecified (principal); C73 Malignant neoplasm of thyroid gland
CPT/HCPCS: 36415; 82670; 83001; 83002; 84146; 84432; 84439; 84443; 86800

== ENCOUNTER → 2024-11-05 | Outpatient (CLI) | payer MEDICAID ==
[2024-11-05 15:32] LABS: T4, Free (Free Thyroxine) 1.54 ng/dL (0.80-1.80)
== END | disposition home or self-care (01) ==
LOC: LABWHC1 10:42
PROVIDERS: ATTEND Internal Medicine
DX: C73 Malignant neoplasm of thyroid gland (principal); E89.0 Postprocedural hypothyroidism
CPT/HCPCS: 36415; 84432; 84439; 84443; 86800